=== PATIENT | male | born 1955 | race Two or more races ===

== ENCOUNTER 2021-04-20 01:37 | Inpatient (IN) | payer MEDICARE, BC ==
[2021-04-20] MEDS ORDERED: MORPHINE SULFATE 4 MG/ML SYRINGE IV STA (02:12)
[2021-04-20] MEDS ORDERED: ONDANSETRON 4 MG/2 ML VIAL IVP STA (02:12)
--- NOTE | 2021-04-20 02:19 | ED ---
Weakness HPI - General Chief complaint: Shortness of Breath Stated complaint: Difficulty Breathing Time Seen by Provider: 04/20/21 02:12 Source: patient, EMS, RN notes reviewed, old records reviewed Mode of arrival: EMS Limitations: no limitations - History of Present Illness Initial comments: This is a 65-year-old male to the ER for evaluation. Patient resents today for evaluation regards to weakness not feeling well shortness of breath with exertio n no activity level at home significant swelling of his legs and scrotum. Multiple complaints. Recent history of severe anemia with colonoscopy. Patient states she still feels weak and dizzy. Patient has no travel has no travel history no fevers no sick contacts that he knows. He does have recent history of GI bleed with anemia MD Complaint: generalized weakness, lack of energy, difficulty walking (Patient is currently unable to walk) -: days(s) Location: generalized Severity: severe Severity scale (1-10): 10 Quality: constant Consistency: constant Improves with: none Worsens with: none Context: history of similar Associated Symptoms: dark stools, loss of appetite, nausea/vomiting, shortness of breath - Related Data Home Medications Medication Instructions Recorded Confirmed Dicyclomine [Bentyl] 20 mg PO QID PRN 04/10/21 04/10/21 Diltiazem HCl [Cartia Xt] 180 mg PO TID 04/10/21 04/10/21 Furosemide [Lasix] 40 mg PO DAILY 04/10/21 04/10/21 Methyl Folate 1000mcg 1 tab PO MOTHFR 04/10/21 04/10/21 Metoprolol Tartrate [Lopressor] 100 mg PO TID 04/10/21 04/10/21 Oxybutynin Chloride [Ditropan XL] 10 mg PO BID 04/10/21 04/10/21 Pantoprazole [Protonix] 40 mg PO DAILY 04/10/21 04/10/21 Simvastatin [Zocor] 40 mg PO HS 04/10/21 04/10/21 Tamsulosin HCl [Flomax] 0.4 mg PO DAILY 04/10/21 04/10/21 cloNIDine HCL [Catapres] 0.2 mg PO BID 04/10/21 04/10/21 Previous Rx's Medication Instructions Recorded Acetaminophen Tab [Tylenol] 650 mg PO Q6HR PRN tab 04/15/21 Aspirin 81 mg PO DAILY #3 tab 04/15/21 Ferrous Sulfate [Feosol] 325 mg PO DAILY 3 Days tab 04/15/21 lisinopriL [Zestril] 10 mg PO DAILY tab 04/15/21 traZODone HCL 100 mg PO HS #3 tablet 04/15/21 Allergies Allergy/AdvReac Type Severity Reaction Status Date / Time No Known Allergies Allergy Verified 04/10/21 17:33 Review of Systems ROS Statement: Those systems with pertinent positive or pertinent negative responses have been documented in the HPI. ROS Other: All systems not noted in ROS Statement are negative. Past Medical History Past Medical History: Atrial Fibrillation, Blood Disorder, Coronary Artery Disease (CAD), Cancer, Heart Failure, Deep Vein Thrombosis (DVT), Hyperlipidemia, Hypertension, Pulmonary Embolus (PE) Additional Past Medical History / Comment(s): clotting disorder MTHFR. History of Any Multi-Drug Resistant Organisms: None Reported Past Surgical History: Back Surgery Additional Past Surgical History / Comment(s): Stomach stapling Past Psychological History: No Psychological Hx Reported Smoking Status: Never smoker Past Alcohol Use History: None Reported Past Drug Use History: None Reported - Past Family History Father Family Medical History: Cancer Additional Family Medical History / Comment(s): Colorectal, Spinal, Pancreaitic, Liver cancer Mother Additional Family Medical History / Comment(s): Ovarian Cancer General Exam General appearance: alert, in no apparent distress, lethargic, in distress Head exam: Present: atraumatic, normocephalic, normal inspection Eye exam: Present: normal appearance, PERRL, EOMI. Absent: scleral icterus, conjunctival injection, periorbital swelling ENT exam: Present: normal exam, mucous membranes moist Neck exam: Present: normal inspection. Absent: tenderness, meningismus, lymp hadenopathy Respiratory exam: Present: normal lung sounds bilaterally. Absent: respiratory distress, wheezes, rales, rhonchi, stridor Cardiovascular Exam: Present: regular rate, normal rhythm, normal heart sounds. Absent: systolic murmur, diastolic murmur, rubs, gallop, clicks GI/Abdominal exam: Present: soft, normal bowel sounds. Absent: distended, tenderness, guarding, rebound, rigid Extremities exam: Present: normal inspection, full ROM, normal capillary refill. Absent: tenderness, pedal edema, joint swelling, calf tenderness Back exam: Present: normal inspection Neurological exam: Present: alert, oriented X3, CN II-XII intact Psychiatric exam: Present: normal affect, normal mood Skin exam: Present: warm, dry, intact, normal color. Absent: rash Course Vital Signs 04/20/21 01:43 Temperature 99.1 F Pulse Rate 76 Respiratory 18 Rate Blood Pressure 93/70 O2 Sat by Pulse 97 Oximetry - Reevaluation(s) Reevaluation #1: 04/20/21 04:26 Medical record is reviewed Reevaluation #2: 04/20/21 04:26 Patient has no improvement in symptoms Reevaluation #3: 04/20/21 04:26 Patient informed results and questions answered - Consultations Consultation #1: Spoke with [facility] who agrees to admit this patient EKG Findings - EKG Comments: EKG Findings:: EKG shows rate of 69 QRS 173 QTc 454 Medical Decision Making - Medical Decision Making 65 male DF for evaluation, no recent diagnoses of cancer severely malnourished a lot of nondependent edema. Patient will be admitted secondary to significantly low hemoglobin shortness of breath and weakness - Lab Data Result diagrams: 04/20/21 02:07 04/20/21 02:07 Lab Results 04/20/21 04/20/21 04/20/21 Range/Units 02:07 02:07 02:07 WBC 4.4 (3.8-10.6) k/uL RBC 3.32 L (4.30-5.90) m/uL Hgb 6.6 L* (13.0-17.5) gm/dL Hct 24.4 L (39.0-53.0) % MCV 73.6 L (80.0-100.0) fL MCH 20.0 L (25.0-35.0) pg MCHC 27.1 L (31.0-37.0) g/dL RDW 24.0 H (11.5-15.5) % Plt Count 283 (150-450) k/uL MPV 6.7 Neutrophils % (Manual) 61 % Band Neuts % (Manual) 1 % Lymphocytes % (Manual) 25 % Monocytes % (Manual) 8 % Eosinophils % (Manual) 4 % Basophils % (Manual) 1 % Neutrophils # (Manual) 2.70 (1.3-7.7) k/uL Lymphocytes # (Manual) 1.10 (1.0-4.8) k/uL Monocytes # (Manual) 0.35 (0-1.0) k/uL Eosinophils # (Manual) 0.18 (0-0.7) k/uL Basophils # (Manual) 0.04 (0-0.2) k/uL Nucleated RBCs 0 (0-0) /100 WBC Manual Slide Review Performed Polychromasia Present Hypochromasia Marked Poikilocytosis Moderate Anisocytosis Moderate Microcytosis Marked Ovalocytes Present Fragmented RBCs Present PT 12.8 H (9.0-12.0) sec INR 1.2 H (<1.2) APTT 27.0 (22.0-30.0) sec Sodium 139 (137-145) mmol/L Potassium 3.2 L (3.5-5.1) mmol/L Chloride 104 (98-107) mmol/L Carbon Dioxide 30 (22-30) mmol/L Anion Gap 5 mmol/L BUN 17 (9-20) mg/dL Creatinine 0.98 (0.66-1.25) mg/dL Est GFR (CKD-EPI)AfAm >90 (>60 ml/min/1.73 sqM) Est GFR (CKD-EPI)NonAf 81 (>60 ml/min/1.73 sqM) Glucose 97 (74-99) mg/dL Calcium 7.5 L (8.4-10.2) mg/dL Phosphorus 3.1 (2.5-4.5) mg/dL Magnesium 2.2 (1.6-2.3) mg/dL Total Bilirubin 0.5 (0.2-1.3) mg/dL AST 23 (17-59) U/L ALT 11 (4-49) U/L Alkaline Phosphatase 79 (38-126) U/L Troponin I (0.000-0.034) ng/mL NT-Pro-B Natriuret Pep pg/mL Total Protein 5.9 L (6.3-8.2) g/dL Albumin 2.7 L (3.5-5.0) g/dL Blood Type Blood Type Recheck Bld Type Recheck Status Antibody Screen Spec Expiration Date 04/20/21 04/20/21 04/20/21 Range/Units 02:07 02:07 02:07 WBC (3.8-10.6) k/uL RBC (4.30-5.90) m/uL Hgb (13.0-17.5) gm/dL Hct (39.0-53.0) % MCV (80.0-100.0) fL MCH (25.0-35.0) pg MCHC (31.0-37.0) g/dL RDW (11.5-15.5) % Plt Count (150-450) k/uL MPV Neutrophils % (Manual) % Band Neuts % (Manual) % Lymphocytes % (Manual) % Monocytes % (Manual) % Eosinophils % (Manual) % Basophils % (Manual) % Neutrophils # (Manual) (1.3-7.7) k/uL Lymphocytes # (Manual) (1.0-4.8) k/uL Monocytes # (Manual) (0-1.0) k/uL Eosinophils # (Manual) (0-0.7) k/uL Basophils # (Manual) (0-0.2) k/uL Nucleated RBCs (0-0) /100 WBC Manual Slide Review Polychromasia Hypochromasia Poikilocytosis Anisocytosis Microcytosis Ovalocytes Fragmented RBCs PT (9.0-12.0) sec INR (<1.2) APTT (22.0-30.0) sec Sodium (137-145) mmol/L Potassium (3.5-5.1) mmol/L Chloride (98-107) mmol/L Carbon Dioxide (22-30) mmol/L Anion Gap mmol/L BUN (9-20) mg/dL Creatinine (0.66-1.25) mg/dL Est GFR (CKD-EPI)AfAm (>60 ml/min/1.73 sqM) Est GFR (CKD-EPI)NonAf (>60 ml/min/1.73 sqM) Glucose (74-99) mg/dL Calcium (8.4-10.2) mg/dL Phosphorus (2.5-4.5) mg/dL Magnesium (1.6-2.3) mg/dL Total Bilirubin (0.2-1.3) mg/dL AST (17-59) U/L ALT (4-49) U/L Alkaline Phosphatase (38-126) U/L Troponin I <0.012 (0.000-0.034) ng/mL NT-Pro-B Natriuret Pep 3590 pg/mL Total Protein (6.3-8.2) g/dL Albumin (3.5-5.0) g/dL Blood Type A Negative Blood Type Recheck A Neg Bld Type Recheck Status No Antibody Screen NEGATIVE Spec Expiration Date 04/23/2021 - 2306 - Radiology Data Radiology results: report reviewed (Chest x-rays negative for acute disease), image reviewed Critical Care Time Critical Care Time: Yes Total Critical Care Time: 31 Disposition Clinical Impression: Confusion, MTHFR gene mutation, Gastric mass, Microcytic anemia, Symptomatic anemia, Weakness, Scrotal edema Disposition: ADMITTED IP TO THIS [facility] Condition: Fair Is patient prescribed a controlled substance at d/c from ED?: No Referrals: Nonstaff,Physician [REFERRING] - 1-2 days
[2021-04-20 02:33] LABS: ALT 11 U/L (4-49); AST 23 U/L (17-59); African American GFR (CKD) >90 (>60 ml/min/1.73 sqM); Albumin 2.7 g/dL (3.5-5.0); Alkaline Phosphatase 79 U/L (38-126); Anion Gap 5 mmol/L; Blood Urea Nitrogen 17 mg/dL (9-20); Calcium 7.5 mg/dL (8.4-10.2); Carbon Dioxide 30 mmol/L (22-30); Chloride 104 mmol/L (98-107); Glucose 97 mg/dL (74-99); Magnesium 2.2 mg/dL (1.6-2.3); Non-African American GFR(CKD) 81 (>60 ml/min/1.73 sqM); Phosphorus 3.1 mg/dL (2.5-4.5); Potassium 3.2 mmol/L (3.5-5.1); Sodium 139 mmol/L (137-145); Total Bilirubin 0.5 mg/dL (0.2-1.3); Total Protein 5.9 g/dL (6.3-8.2)
[2021-04-20 02:35] LABS: INR 1.2 (<1.2); Prothrombin Time 12.8 sec (9.0-12.0)
[2021-04-20 03:02] LABS: Anisocytosis Moderate; HCT 24.4 % (39.0-53.0); Hypochromasia Marked; MCHC 27.1 g/dL (31.0-37.0); MCV 73.6 fL (80.0-100.0); Mean Platelet Volume 6.7; Microcytosis Marked; Platelet Count 283 k/uL (150-450); Poikilocytosis Moderate; RBC 3.32 m/uL (4.30-5.90); WBC 4.4 k/uL (3.8-10.6)
[2021-04-20 03:07] LABS: HGB 6.6 gm/dL (13.0-17.5)
--- NOTE | 2021-04-20 03:21 | XR ---
EXAMINATION TYPE: XR chest 1V portable DATE OF EXAM: 04/20/2021 COMPARISON: 04/11/2021 HISTORY: Short of breath TECHNIQUE: FINDINGS: There is some elevation of the right diaphragm. There is some mild atelectasis right lung b ase. No heart failure seen. Heart appears enlarged. There are chest leads. Bony thorax is intact IMPRESSION: There is some mild atelectasis right lung base. No change compared to the old exam. No he art failure.
[2021-04-20 03:37] LABS: Band Neutrophils % 1 %; Basophils # (M) 0.04 k/uL (0-0.2); Eosinophils # (M) 0.18 k/uL (0-0.7); Monocytes # (M) 0.35 k/uL (0-1.0); Neutrophils % (M) 61 %; Nucleated Red Blood Cells 0 /100 WBC (0-0); Total Cells Counted 100
[2021-04-20 03:42] LABS: Ovalocytes Present; Polychromasia Present
[2021-04-20 03:43] LABS: RBC Fragments Present
[2021-04-20] MEDS ORDERED: MORPHINE SULFATE 4 MG/ML SYRINGE IV PRN (04:23)
[2021-04-20] MEDS ORDERED: LORazepam 2 MG/ML INJ IV PRN (04:23)
[2021-04-20] MEDS ORDERED: ONDANSETRON 4 MG/2 ML VIAL IVP PRN (04:23)
[2021-04-20] MEDS ORDERED: NALOXONE 0.4 MG/ML 1 ML VIAL IV PRN (04:23)
[2021-04-20] MEDS ORDERED: SODIUM CHLORIDE 0.9% 1,000 ML IV SCH (04:30)
[2021-04-20] MEDS ORDERED: POTASSIUM BICARBONATE/CIT AC 20 MEQ TABLET.EFF PO ONE (04:32)
[2021-04-20] MEDS ORDERED: POTASSIUM CHLORIDE ER 20 MEQ TAB.ER PO STA (04:32)
[2021-04-20 05:24] LABS: Appearance,Urine Clear (Clear); Bilirubin,Urine Negative (Negative); Blood,Urine Negative (Negative); Color,Urine Yellow; Glucose,Urine (UA) Negative (Negative); Ketones,Urine Negative (Negative); Leukocyte Esterase,Urine Negative (Negative); Nitrite,Urine Negative (Negative); PH, Urine 5.5 (5.0-8.0); Protein,Urine Trace (Negative); Specific Gravity,Urine 1.034 (1.001-1.035)
[2021-04-20] MEDS ORDERED: DICYCLOMINE 20 MG TAB PO PRN (09:53)
[2021-04-20] MEDS ORDERED: ACETAMINOPHEN TAB 325 MG TAB PO PRN (09:53)
--- NOTE | 2021-04-20 11:29 | P.HPIM ---
History of Present Illness Patient is a 65-year-old male was recently discharged from the hospital after he was treated for a GI bleed and the patient is found to have a mass in the stomach and lower esophageal area. Biopsies were obtained those biopsies of now positive for moderately differentiated adenocarcinoma. Patient was discharged to subacute rehabilitation but he sound signed out AMA from the subacute rehab went home last night he felt short of breath because of which she came back to the hospital. Although all the workup is negative and patient is saturating at 98% on room air. Patient probably has sleep apnea will need a sleep study as an outpatient. Patient is also found to have a hemoglobin of 6.6 and 1 unit of PRBC considering his shortness of breath although this was automatically discontinued as he didn't qualify for blood transfusion with a 6.6 hemoglobin. Patient was also complaining of generalized weakness lack of energy. REVIEW OF SYSTEMS: CONSTITUTIONAL: No fever, no malaise, no fatigue. HEENT: No recent visual problems or hearing problems. Denied any sore throat. CARDIOVASCULAR: No chest pain, orthopnea, PND, no palpitations, no syncope. PULMONARY: no cough, no hemoptysis. GASTROINTESTINAL: No diarrhea, no nausea, no vomiting, no abdominal pain. NEUROLOGICAL: No headaches, no weakness, no numbness. HEMATOLOGICAL: Denies any bleeding or petechiae. GENITOURINARY: Denies any burning micturition, frequency, or urgency. MUSCULOSKELETAL/RHEUMATOLOGICAL: Denies any joint pain, swelling, or any muscle pain. ENDOCRINE: Denies any polyuria or polydipsia. The rest of the 14-point review of systems is negative. PHYSICAL EXAMINATION: GENERAL: The patient is alert and oriented x3, not in any acute distress obese HEENT: Pupils are round and equally reacting to light. EOMI. No scleral icterus. Does have conjunctival pallor. Normocephalic, atraumatic. No pharyngeal erythema. No thyromegaly. CARDIOVASCULAR: S1 and S2 present. No murmurs, rubs, or gallops. PULMONARY: Chest is clear to auscultation, no wheezing or crackles. ABDOMEN: Soft, nontender, nondistended, normoactive bowel sounds. No palpable organomegaly. MUSCULOSKELETAL: No joint swelling or deformity. EXTREMITIES: No cyanosis, clubbing, or pedal edema. NEUROLOGICAL: Gross neurological examination did not reveal any focal deficits. SKIN: No rashes. Assessment and plan -Symptoms of shortness of breath and fatigue: Most probably related to his sleep apnea patient will need a sleep study as an outpatient. Anemia may have contributed to some of his symptoms although patient's hemoglobin is 6.6 because of which we're not transfusing him. Esophageal and gastric adenocarcinoma: Oncology will evaluate the patient -Iron deficiency anemia from his recent GI bleed -Obesity with sleep apnea and doesn't use CPAP machine at home -History of DVT in the past patient will be started on subcutaneous heparin used to be on Coumadin in the past because of his recent GI bleed Coumadin was held. Plan at the time was to hold off Coumadin until a followed by GI as an outpatient -Bilateral lower extremity edema and scrotal edema secondary to venous insufficiency patient's IV fluids were discontinued and patient was started on IV Lasix -Chronic atrial fibrillation presently rate controlled anti-correlation is on hold because of his recent GI bleed -Chronic back pain -Medical debility PT and OT consultation patient cannot live by himself and patient signed of her AGAINST MEDICAL ADVICE from subacute rehab, may at least need assisted living manager social services will be consulted -Hypokalemia potassium will be replaced DVT prophylaxis: Subcu heparin Past Medical History Past Medical History: Atrial Fibrillation, Blood Disorder, Coronary Artery Disease (CAD), Heart Failure, Deep Vein Thrombosis (DVT), Hyperlipidemia, Hypertension, Pulmonary Embolus (PE) Additional Past Medical History / Comment(s): clotting disorder MTHFR. History of Any Multi-Drug Resistant Organisms: None Reported Past Surgical History: Back Surgery Additional Past Surgical History / Comment(s): Stomach stapling Past Anesthesia/Blood Transfusion Reactions: No Reported Reaction Past Psychological History: No Psychological Hx Reported Smoking Status: Never smoker Past Alcohol Use History: None Reported Past Drug Use History: None Reported - Past Family History Father Family Medical History: Cancer Additional Family Medical History / Comment(s): Colorectal, Spinal, Pancreaitic, Liver cancer Mother Additional Family Medical History / Comment(s): Ovarian Cancer Medications and Allergies Home Medications Medication Instructions Recorded Confirmed Type Dicyclomine [Bentyl] 20 mg PO QID PRN 04/10/21 04/20/21 History Diltiazem HCl [Cartia Xt] 180 mg PO TID 04/10/21 04/20/21 History Furosemide [Lasix] 40 mg PO DAILY 04/10/21 04/20/21 History Methyl Folate 1000mcg 1 tab PO MOTHFR 04/10/21 04/10/21 History Metoprolol Tartrate [Lopressor] 100 mg PO TID 04/10/21 04/20/21 History Oxybutynin Chloride [Ditropan XL] 10 mg PO BID 04/10/21 04/20/21 History Pantoprazole [Protonix] 40 mg PO DAILY 04/10/21 04/20/21 History Simvastatin [Zocor] 40 mg PO HS 04/10/21 04/20/21 History Tamsulosin HCl [Flomax] 0.4 mg PO DAILY 04/10/21 04/20/21 History cloNIDine HCL [Catapres] 0.2 mg PO BID 04/10/21 04/20/21 History Acetaminophen Tab [Tylenol] 650 mg PO Q6HR PRN tab 04/15/21 04/20/21 Rx Aspirin 81 mg PO DAILY #3 tab 04/15/21 04/20/21 Rx Ferrous Sulfate [Feosol] 325 mg PO DAILY 3 Days tab 04/15/21 Rx traZODone HCL 100 mg PO HS #3 tablet 04/15/21 Rx lisinopriL [Zestril] 10 mg PO BID 04/20/21 04/20/21 History Allergies Allergy/AdvReac Type Severity Reaction Status Date / Time No Known Allergies Allergy Verified 04/10/21 17:33 Physical Exam Vitals: Vital Signs Temp Pulse Pulse Resp BP BP Pulse Ox 04/20/21 05:30 98.7 F 64 20 110/49 98 04/20/21 04:47 73 18 108/42 92 L 04/20/21 01:43 99.1 F 76 18 93/70 97 Intake and Output 04/19/21 04/20/21 04/20/21 22:59 06:59 14:59 Intake Total 100 Balance 100 Intake: Oral 100 Other: Voiding Method Indwelling Catheter Indwelling Catheter Weight 170.097 kg Results CBC & Chem 7: 04/20/21 02:07 04/20/21 02:07 Labs: Abnormal Lab Results - Last 24 Hours (Table) 04/20/21 04/20/21 04/20/21 Range/Units 02:07 02:07 02:07 RBC 3.32 L (4.30-5.90) m/uL Hgb 6.6 L* (13.0-17.5) gm/dL Hct 24.4 L (39.0-53.0) % MCV 73.6 L (80.0-100.0) fL MCH 20.0 L (25.0-35.0) pg MCHC 27.1 L (31.0-37.0) g/dL RDW 24.0 H (11.5-15.5) % PT 12.8 H (9.0-12.0) sec INR 1.2 H (<1.2) Potassium 3.2 L (3.5-5.1) mmol/L Calcium 7.5 L (8.4-10.2) mg/dL Total Protein 5.9 L (6.3-8.2) g/dL Albumin 2.7 L (3.5-5.0) g/dL Urine Protein (Negative) Crossmatch 04/20/21 04/20/21 Range/Units 02:07 05:07 RBC (4.30-5.90) m/uL Hgb (13.0-17.5) gm/dL Hct (39.0-53.0) % MCV (80.0-100.0) fL MCH (25.0-35.0) pg MCHC (31.0-37.0) g/dL RDW (11.5-15.5) % PT (9.0-12.0) sec INR (<1.2) Potassium (3.5-5.1) mmol/L Calcium (8.4-10.2) mg/dL Total Protein (6.3-8.2) g/dL Albumin (3.5-5.0) g/dL Urine Protein Trace H (Negative) Crossmatch See Detail Thrombosis Risk Factor Assmnt - Choose All That Apply Each Factor Represents 1 point: Obesity (BMI >25) Each Risk Factor Represents 2 Points: Age 61-74 years Each Risk Factor Represents 3 Points: History of DVT/PE Other congenital or acquired thrombophilia - If yes, enter type in comment: No Thrombosis Risk Factor Assessment Total Risk Factor Score: 6 Thrombosis Risk Factor Assessment Level: High Risk
--- NOTE | 2021-04-20 12:34 | P.CONS ---
History of Present Illness - Reason for Consult Consult date: 04/20/21 Anemia, gastric mass Requesting physician: Joana Sauer - Chief Complaint Weakness - History of Present Illness Mr. Becerra is a very pleasant 65-year-old gentleman who has multiple comorbidities including history of MTHFR, DVT and PE on automobile bumper straightener anticoagulation with Coumadin, heart failure, and recent admission on for weakness and melena, found to have a hemoglobin of 6.6, MCV 70s, normal WBC and platelets. He was found to be iron deficient. Received 3 units of PRBC and underwent EGD and colonoscopy. Found to have colonic polyps that were benign as well as a gastric mass extending up to the esophagus. 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 Presents back with weakness. Hemoglobin 6.9. Continues to have melena. Continues to be very weak. Discharged home and has not been getting physical therapy. He admits to weight loss. Also with significant edema. No smoking or alcohol use. Family history is significant of ovarian cancer in his mother that he says was diagnosed late as well as metastatic cancer involving the colon, pancreas, liver, and bones in his father who also from this. Brother is also dealing with some type of malignancy that has required feeding tube. Past Medical History Past Medical History: Atrial Fibrillation, Blood Disorder, Coronary Artery Disease (CAD), Heart Failure, Deep Vein Thrombosis (DVT), Hyperlipidemia, Hypertension, Pulmonary Embolus (PE) Additional Past Medical History / Comment(s): clotting disorder MTHFR. History of Any Multi-Drug Resistant Organisms: None Reported Past Surgical History: Back Surgery Additional Past Surgical History / Comment(s): Stomach stapling Past Anesthesia/Blood Transfusion Reactions: No Reported Reaction Past Psychological History: No Psychological Hx Reported Smoking Status: Never smoker Past Alcohol Use History: None Reported Past Drug Use History: None Reported - Past Family History Father Family Medical History: Cancer Additional Family Medical History / Comment(s): Colorectal, Spinal, Pancreaitic, Liver cancer Mother Additional Family Medical History / Comment(s): Ovarian Cancer Medications and Allergies Home Medications Medication Instructions Recorded Confirmed Type Dicyclomine [Bentyl] 20 mg PO QID PRN 04/10/21 04/20/21 History Diltiazem HCl [Cartia Xt] 180 mg PO TID 04/10/21 04/20/21 History Furosemide [Lasix] 40 mg PO DAILY 04/10/21 04/20/21 History Methyl Folate 1000mcg 1 tab PO MOTHFR 04/10/21 04/10/21 History Metoprolol Tartrate [Lopressor] 100 mg PO TID 04/10/21 04/20/21 History Oxybutynin Chloride [Ditropan XL] 10 mg PO BID 04/10/21 04/20/21 History Pantoprazole [Protonix] 40 mg PO DAILY 04/10/21 04/20/21 History Simvastatin [Zocor] 40 mg PO HS 04/10/21 04/20/21 History Tamsulosin HCl [Flomax] 0.4 mg PO DAILY 04/10/21 04/20/21 History cloNIDine HCL [Catapres] 0.2 mg PO BID 04/10/21 04/20/21 History Acetaminophen Tab [Tylenol] 650 mg PO Q6HR PRN tab 04/15/21 04/20/21 Rx Aspirin 81 mg PO DAILY #3 tab 04/15/21 04/20/21 Rx Ferrous Sulfate [Feosol] 325 mg PO DAILY 3 Days tab 04/15/21 Rx traZODone HCL 100 mg PO HS #3 tablet 04/15/21 Rx lisinopriL [Zestril] 10 mg PO BID 04/20/21 04/20/21 History Allergies Allergy/AdvReac Type Severity Reaction Status Date / Time No Known Allergies Allergy Verified 04/10/21 17:33 Physical Exam Vitals: Vital Signs Temp Pulse Pulse Resp BP BP Pulse Ox 04/20/21 05:30 98.7 F 64 20 110/49 98 04/20/21 04:47 73 18 108/42 92 L 04/20/21 01:43 99.1 F 76 18 93/70 97 Intake and Output 04/19/21 04/20/21 04/20/21 22:59 06:59 14:59 Intake Total 100 Balance 100 Intake: Oral 100 Other: Voiding Method Indwelling Catheter Indwelling Catheter Weight 170.097 kg Gen.: No acute distress. HEENT: Mucosa moist. No conjunctival pallor or scleral icterus. Neck: Neck supple. Lungs: No respiratory distress. Heart: Normal rate. Abdomen: Soft. Neuro: Alert and oriented 3. Skin: No jaundice. Psych: Appropriate affect. Results CBC & Chem 7: 04/20/21 02:07 04/20/21 02:07 Labs: Abnormal Lab Results - Last 24 Hours (Table) 04/20/21 04/20/21 04/20/21 Range/Units 02:07 02:07 02:07 RBC 3.32 L (4.30-5.90) m/uL Hgb 6.6 L* (13.0-17.5) gm/dL Hct 24.4 L (39.0-53.0) % MCV 73.6 L (80.0-100.0) fL MCH 20.0 L (25.0-35.0) pg MCHC 27.1 L (31.0-37.0) g/dL RDW 24.0 H (11.5-15.5) % PT 12.8 H (9.0-12.0) sec INR 1.2 H (<1.2) Potassium 3.2 L (3.5-5.1) mmol/L Calcium 7.5 L (8.4-10.2) mg/dL Total Protein 5.9 L (6.3-8.2) g/dL Albumin 2.7 L (3.5-5.0) g/dL Urine Protein (Negative) Crossmatch 04/20/21 04/20/21 Range/Units 02:07 05:07 RBC (4.30-5.90) m/uL Hgb (13.0-17.5) gm/dL Hct (39.0-53.0) % MCV (80.0-100.0) fL MCH (25.0-35.0) pg MCHC (31.0-37.0) g/dL RDW (11.5-15.5) % PT (9.0-12.0) sec INR (<1.2) Potassium (3.5-5.1) mmol/L Calcium (8.4-10.2) mg/dL Total Protein (6.3-8.2) g/dL Albumin (3.5-5.0) g/dL Urine Protein Trace H (Negative) Crossmatch See Detail CT scan - abdomen: report reviewed CT scan - chest: report reviewed CT scan - pelvis: report reviewed MRI - head: report reviewed Assessment and Plan Assessment: 1. Newly found gastric cancer 2. Microcytic anemia due to blood loss 3. Iron deficiency 4. GI bleed 5. Fluid overload 6. Weight loss Plan: Mr. Becerra is a very pleasant 65-year-old gentleman who is here for weakness due to iron deficiency microcytic anemia, likely from newly found gastric adenocarcinoma. He was recently hospitalized at the end of March for melena, hemoglobin 6's, MCV 70, found to have a ferritin of 14, normal B12 and folate. EGD and colonoscopy revealed a gastric mass as well as benign colon polyps. Pathology of the gastric mass positive for adenocarcinoma, HER-2 2+ IHC, fish pending. Patient has not followed up yet in the clinic to discuss these results as he ended up in the hospital prior to his appointment as scheduled on 04/23/21. I did have a discussion with the patient and his daughter at bedside about his pathology results. He did have staging CT CAP and MRI of the brain during his last hospitalization which was unremarkable other than thickening in the gastric wall due to the gastric mass. He continues to be significantly anemic. He will need blood transfusion to maintain hemoglobin above 7 as well as further IV iron supplementation. He received 3 doses of Ferrlicet during his last h ospitalization. Would benefit from an additional 3 doses at this point. Otherwise at this point this seems to be an early stage gastric cancer. He would benefit from outpatient PET scan. He will also need to work on his performance status. He is willing to go to subacute rehab if this is indicated. He would benefit from PT OT evaluation. He will also benefit from seeing radiation oncology team. Otherwise continue to monitor his hemoglobin. He does have significant fluid overload and history of heart failure. Defer to primary team for treatment of this. If he has not had a 2-D echo recently he might benefit from repeating this to reassess his cardiac status especially in light of possibly needing chemotherapy and anti-HER-2 medication if his HER-2 was positive on fish. Discussed with patient and daughter in detail and they're agreeable to the plan. All of their questions were answered.
[2021-04-20] MEDS: FUROSEMIDE 10 MG/ML 4 ML VIAL IV SCH ×2 (13:00→20:57)
[2021-04-20] MEDS: SODIUM FERRIC GLUCONAT-SUCROSE 125 MG in SODIUM CHLORIDE 0.9% 100 ML IVPB SCH (14:33)
[2021-04-20] MEDS: METOPROLOL TARTRATE 50 MG TAB PO SCH ×2 (18:09→20:57)
[2021-04-20] MEDS: DILTIAZEM CD 180 MG CAP.ER.24H PO SCH ×2 (18:09→20:57)
[2021-04-20] MEDS: HEPARIN SODIUM,PORCINE/PF 5,000 UNIT/0.5 ML SYRINGE SQ SCH (20:57)
[2021-04-20] MEDS: OXYBUTYNIN 10 MG TAB.ER.24 PO SCH (20:57)
[2021-04-20] MEDS: traZODone HCL 100 MG TAB PO SCH (20:57)
[2021-04-20] MEDS: ATORVASTATIN 20 MG TAB PO SCH (20:57)
[2021-04-20] MEDS ORDERED: cloNIDine HCL 0.1 MG TAB PO SCH (21:00)
[2021-04-20] MEDS ORDERED: cloNIDine HCL 0.2 MG TAB PO SCH (21:00)
[2021-04-20] MEDS ORDERED: lisinopriL 10 MG TAB PO SCH (21:00)
[2021-04-21] MEDS ORDERED: ASPIRIN 81 MG PO SCH (09:00)
[2021-04-21] MEDS ORDERED: FUROSEMIDE 40 MG TAB PO SCH (09:00)
[2021-04-21 09:10] LABS: African American GFR (CKD) 102.8 (60.0-200.0); Anion Gap 8.9 mmol/L (10.00-18.00); BUN/Creat Ratio 15.22 Ratio (12.00-20.00); Blood Urea Nitrogen 13.7 mg/dL (9.0-27.0); Calcium 7.9 mg/dL (8.7-10.3); Carbon Dioxide 28.1 mmol/L (20.0-27.5); Magnesium 2.2 mg/dL (1.5-2.4); Non-African American GFR(CKD) 88.7 (60.0-200.0); Phosphorus 2.8 mg/dL (2.4-5.1); Potassium 4.1 mmol/L (3.5-5.5); Total Bilirubin 0.2 mg/dL (0.30-1.20)
[2021-04-21 09:41] LABS: HGB 6.3 g/dL (13.0-17.0); MCH 18.8 pg (27.0-32.0); MCHC 25.2 g/dL (32.0-37.0); MCV 74.4 fL (80.0-97.0); Mean Platelet Volume 9.6 fL (9.5-12.2); NRBC Per 100 WBC 0 /100 WBCS (0.0-0.0); Platelet Count 299 X 10*3/uL (140-440); RBC 3.36 X 10*6/uL (4.40-5.60); RDW 28.7 % (11.5-14.5); WBC 6.03 X 10*3/uL (4.50-10.00)
[2021-04-21] MEDS ORDERED: METHYL FOLATE 1000 MCG PO SCH (09:53)
[2021-04-21] MEDS: FUROSEMIDE 10 MG/ML 4 ML VIAL IV SCH ×2 (10:04→20:13)
[2021-04-21] MEDS: HEPARIN SODIUM,PORCINE/PF 5,000 UNIT/0.5 ML SYRINGE SQ SCH (10:04)
[2021-04-21] MEDS: TAMSULOSIN 0.4 MG CAP.ER.24H PO SCH (10:06)
[2021-04-21] MEDS: METOPROLOL TARTRATE 50 MG TAB PO SCH ×3 (10:06→20:24)
[2021-04-21] MEDS: FERROUS SULFATE 325 MG TAB PO SCH (10:06)
[2021-04-21] MEDS: PANTOPRAZOLE 40 MG TABLET PO SCH (10:06)
[2021-04-21] MEDS: OXYBUTYNIN 10 MG TAB.ER.24 PO SCH ×2 (10:07→20:13)
[2021-04-21] MEDS: DILTIAZEM CD 180 MG CAP.ER.24H PO SCH ×3 (10:07→20:13)
--- NOTE | 2021-04-21 10:13 | P.PN ---
Subjective Progress Note Date: 04/21/21 Patient is a 65-year-old male was recently discharged from the hospital after he was treated for a GI bleed and the patient is found to have a mass in the stomach and lower esophageal area. Biopsies were obtained those biopsies of now positive for moderately differentiated adenocarcinoma. Patient was discharged to subacute rehabilitation but he sound signed out AMA from the subacute rehab went home last night he felt short of breath because of which she came back to the hospital. Although all the workup is negative and patient is saturating at 98% on room air. Patient probably has sleep apnea will need a sleep study as an outpatient. Patient is also found to have a hemoglobin of 6.6 and 1 unit of PRBC considering his shortness of breath although this was automatically discontinued as he didn't qualify for blood transfusion with a 6.6 hemoglobin. Patient was also complaining of generalized weakness lack of energy. 04/21/2021 Patient evaluated today on the bedside commode after bowel movement, which is soft formed and brown no evidence for blood in the stool currently. Patient now requesting some form of rehab for discharge as he has been quite weak at home. Complains of some throat irritation. Labs today show hemoglobin 6.3, MCV 74.4, platelet count 299. Potassium normalized to 4.1, CO2 28, anion gap 8.9, calcium 7.9. Patient to receive 1 unit of blood today. Otherwise he is afebrile, heart rate 73 sinus rhythm, blood pressure 124/67 and he is 94% on room air. Lungs are clear today. Patient with significant scrotal edema continues on IV lasix and recommended elevation. Patient to receive 3 days of IV iron. Review of Systems Constitutional: Reports fatigue denied any fever. Cardio vascular: denied any chest pain, palpitations Gastrointestinal: denied any nausea, vomiting, diarrhea Pulmonary: Denied any shortness of breath cough Neurologic denied any new focal deficits All inpatient medications were reviewed and appropriate changes in these medications as dictated in the interval history and assessment and plan. PHYSICAL EXAMINATION: GENERAL: The patient is alert and oriented x3, not in any acute distress obese HEENT: Pupils are round and equally reacting to light. EOMI. No scleral icterus. Does have conjunctival pallor. Normocephalic, atraumatic. No pharyngeal erythema. No thyromegaly. CARDIOVASCULAR: S1 and S2 present. No murmurs, rubs, or gallops. PULMONARY: Chest is clear to auscultation, no wheezing or crackles. ABDOMEN: Soft, nontender, nondistended, normoactive bowel sounds. No palpable organomegaly. MUSCULOSKELETAL: No joint swelling or deformity. EXTREMITIES: No cyanosis, clubbing, or pedal edema. NEUROLOGICAL: Gross neurological examination did not reveal any focal deficits. SKIN: No rashes. : Significant scrotal edema no breakdown noted Assessment and plan -Symptoms of shortness of breath and fatigue: Possibly will sleep apnea, will need outpatient evaluation, component of anemia hgb 6.3 today will receive 1 unit of blood -Anemia most likely from slow GI bleed related to gastric carcinoma, hgb today 6.3, will receive 1 unit of PRBC today and follow up with CBC tomorrow. Transfuse for hgb <6.5. -Esophageal and gastric adenocarcinoma: Oncology will evaluate the patient -Iron deficiency anemia from his recent GI bleed, ordered for 3 days of IV iron -Obesity with sleep apnea and doesn't use CPAP machine at home, outpatient evaluation recommended -History of DVT in the past patient will be started on subcutaneous heparin used to be on Coumadin in the past because of his recent GI bleed Coumadin was held. Plan at the time was to hold off Coumadin until follow up by GI as an outpatient -Bilateral lower extremity edema and scrotal edema secondary to venous insufficiency patient's IV fluids were discontinued, continues on IV Lasix -Chronic atrial fibrillation presently rate controlled anti-coagulation is on hold because of his recent GI bleed -Chronic back pain -Medical debility PT and OT consultation patient cannot live by himself and patient signed of her AGAINST MEDICAL ADVICE from subacute rehab, may at least need assisted living outreach and education social worker will be consulted -Hypokalemia, resolved after oral supplementation DVT prophylaxis: Subcu heparin Objective - Vital Signs Vital signs: Vital Signs Temp 98.4 F 04/21/21 05:00 Pulse 73 04/21/21 05:00 Resp 16 04/21/21 05:00 BP 124/67 04/21/21 05:00 Pulse Ox 94 L 04/21/21 05:00 Intake & Output 04/20/21 04/21/21 04/21/21 18:59 06:59 18:59 Intake Total 100 570 Output Total 2600 Balance -2029 Intake: Intake, IV Titration 100 Amount Sodium Ferric Gluconat- 100 Sucrose 125 mg In Sodium Chloride 0.9% 100 ml @ 100 mls/hr IVPB DAILY [facility] Rx#:[id number] Oral 570 Output: Urine 2600 Other: Voiding Method Indwelling Catheter Indwelling Catheter - Labs CBC & Chem 7: 04/21/21 05:34 04/21/21 05:34 Labs: Abnormal Lab Results - Last 24 Hours (Table) 04/20/21 04/21/21 04/21/21 Range/Units 02:07 05:34 05:34 RBC 3.36 L (4.40-5.60) X 10*6/uL Hgb 6.3 L* (13.0-17.0) g/dL Hct 25.0 L (39.6-50.0) % MCV 74.4 L (80.0-97.0) fL MCH 18.8 L (27.0-32.0) pg MCHC 25.2 L (32.0-37.0) g/dL RDW 28.7 H (11.5-14.5) % Carbon Dioxide 28.1 H (20.0-27.5) mmol/L Anion Gap 8.90 L (10.00-18.00) mmol/L Calcium 7.9 L (8.7-10.3) mg/dL Total Bilirubin 0.20 L (0.30-1.20) mg/dL Total Protein 6.0 L (6.2-8.2) g/dL Albumin 3.0 L (3.8-4.9) g/dL Albumin/Globulin Ratio 1.00 L (1.60-3.17) g/dL Crossmatch See Detail Assessment and Plan Time with Patient: Greater than 30
[2021-04-21 10:17] LABS: Basophils # (A) 0.04 X 10*3/uL (0.00-0.10); Basophils % (A) 0.7 %; Eosinophils # (A) 0.16 X 10*3/uL (0.04-0.35); Eosinophils % (A) 2.7 %; Hypochromasia (M) 2+; Immature Grans, Automated 0.2 %; Lymphocytes # (A) 1.17 X 10*3/uL (0.90-5.00); Lymphocytes % (A) 19.4 %; Monocytes # (A) 0.52 X 10*3/uL (0.20-1.00); Monocytes % (A) 8.6 %; Neutrophils # (A) 4.13 X 10*3/uL (1.80-7.70); Neutrophils % (A) 68.4 %; Schistocytes 1+
[2021-04-21] MEDS: SODIUM FERRIC GLUCONAT-SUCROSE 125 MG in SODIUM CHLORIDE 0.9% 100 ML IVPB SCH (10:20)
--- NOTE | 2021-04-21 11:46 | P.PN ---
Subjective Progress Note Date: 04/21/21 Principal diagnosis: GI bleed. Newly diagnosed In f/u today pt states qing BM this AM, denies hematemesis. He requires assistance with some ADLs at this time. Objective - Vital Signs Vital signs: Vital Signs Temp 98.4 F 04/21/21 05:00 Pulse 73 04/21/21 05:00 Resp 16 04/21/21 05:00 BP 124/67 04/21/21 05:00 Pulse Ox 94 L 04/21/21 05:00 Intake & Output 04/20/21 04/21/21 04/21/21 18:59 06:59 18:59 Intake Total 100 570 Output Total 2600 Balance 100 -2029 Intake: Intake, IV Titration 100 Amount Sodium Ferric Gluconat- 100 Sucrose 125 mg In Sodium Chloride 0.9% 100 ml @ 100 mls/hr IVPB DAILY [facility] Rx#:[id number] Oral 570 Output: Urine 2600 Other: Voiding Method Indwelling Catheter Indwelling Catheter Indwelling Catheter # Bowel Movements 1 - Constitutional General appearance: Present: cooperative, morbidly obese, no acute distress - EENT Eyes: Present: anicteric sclerae, EOMI ENT: Present: hearing grossly normal - Respiratory Respiratory: bilateral: CTA - Cardiovascular Rhythm: regular Heart sounds: normal: S1, S2 Abnormal Heart Sounds: Absent: systolic murmur, diastolic murmur, rub, S3 Gallop, S4 Gallop, click, other - Peripheral edema leg Peripheral Edema: bilateral: Trace - Gastrointestinal General gastrointestinal: Present: normal bowel sounds, soft. Absent: absent bowel sounds, decreased bowel sounds, distended, hepatomegaly, hyperactive bowel sounds, organomegaly, rigid, scaphoid, splenomegaly, tenderness, umbilical hernia, ventral hernia - Integumentary Integumentary Comment(s): BLE bronzing of the skin c/w vascular insufficiency Integumentary: Present: pale - Neurologic Neurologic: Present: CNII-XII intact - Musculoskeletal Musculoskeletal: Present: generalized weakness, strength equal bilaterally - Psychiatric Psychiatric: Present: A&O x's 3, appropriate affect, intact judgment & insight - Labs CBC & Chem 7: 04/21/21 05:34 04/21/21 05:34 Labs: Abnormal Lab Results - Last 24 Hours (Table) 03/06/22 03/07/22 03/07/22 Range/Units 02:07 05:34 05:34 RBC 3.36 L (4.40-5.60) X 10*6/uL Hgb 6.3 L* (13.0-17.0) g/dL Hct 25.0 L (39.6-50.0) % MCV 74.4 L (80.0-97.0) fL MCH 18.8 L (27.0-32.0) pg MCHC 25.2 L (32.0-37.0) g/dL RDW 28.7 H (11.5-14.5) % Carbon Dioxide 28.1 H (20.0-27.5) mmol/L Anion Gap 8.90 L (10.00-18.00) mmol/L Calcium 7.9 L (8.7-10.3) mg/dL Total Bilirubin 0.20 L (0.30-1.20) mg/dL Total Protein 6.0 L (6.2-8.2) g/dL Albumin 3.0 L (3.8-4.9) g/dL Albumin/Globulin Ratio 1.00 L (1.60-3.17) g/dL Crossmatch See Detail Assessment and Plan (1) GE junction carcinoma Narrative/Plan: Newly diagnosed. Pt needs PET outpt to confirm no mets. He needs to participate in rehab so that he can manage ADLs and get to and from appts. Encouraged pt that if he improved his PS he will tolerate treatment better. He verbalized understanding Current Visit: Yes Status: Acute Priority: High Code(s): C16.0 - MALIGNANT NEOPLASM OF CARDIA SNOMED Code(s): 36873962 (2) Symptomatic anemia Narrative/Plan: Contributing to weakness. Acute on chronic bleeding from tumor. Pt has had IV iron, on oral iron. He is getting 1 unit PRBCs for Hgb 6.3. Coumadin, asa held 2/2 bleeding. SCDs for DVT prophylaxis. Current Visit: Yes Status: Acute Priority: High Code(s): D64.9 - ANEMIA, UNSPECIFIED SNOMED Code(s): 798476143 (3) Weakness Narrative/Plan: 2/2 anemia. Discussed case with Attending SOFTWARE INTEGRATION DEVELOPER. Pt left AMA from rehab due to poor conditions. Plan is to try another rehab. Pt cannot have chemo until he is discharged from rehab. He also needs staging PET scan prior to starting chemo so that has to be planned outpt too. Current Visit: Yes Status: Acute Priority: High Code(s): R53.1 - WEAKNESS SNOMED Code(s): 55258615 (4) GI hemorrhage Narrative/Plan: Pt has intermittent melena per his reports. This is going to continue pending treatment of friable eso/gastric tumor. Case discussed with Rad Onc who will see pt and determine if a few doses of XRT will help to palliate tumor bleeding and help maintain Hgb at a level that hopefully will allow pt to rehab. Current Visit: Yes Status: Acute Priority: High Code(s): K92.2 - GASTROINTESTINAL HEMORRHAGE, UNSPECIFIED SNOMED Code(s): 81581214 (5) Melena Narrative/Plan: Most likely 2/2 eso/gastric mass. Pt denies any melena today Current Visit: Yes Status: Acute Priority: High Code(s): K92.1 - MELENA SNOMED Code(s): 5240176 Plan: attests: I have performed H&P, developed impression and plan of care. Discussed with dictator. Agree with dictation, documented as a scribe.
--- NOTE | 2021-04-21 15:06 | P.CONS ---
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 He presented with symptomatic anemia and a hemoglobin of 6. After undergoing discharge to subacute rehabilitation, the patient was readmitted to the hospital secondary to persistent weakness and continued bleeding. the patient reports that for the past several months he has noticed dark, tarry stools. He also has had some increasing discomfort with swallowing. It was not until recently that the patient developed difficulty with occasional regurgitation secondary to food obstruction. The patient presented to the ER on April 10 complaining of weakness and dark stools. The patient's hemoglobin was found to be 6.5. He had been on aspirin and Coumadin. He underwent an upper endoscopy on April 12 revealing a circumferential, ulcerated mass involving the cardia of the stomach extending to the distal esophagus. This band from 40 cm through the GE junction at 47 cm into the cardia. Biopsies of both the distal esophagus and cardia were consistent with moderately differentiated adenocarcinoma, HER-2 2+ (FISH Pending). The patient did undergo a CT scan of the chest, abdomen and pelvis on April 12. This revealed a small right-sided pleural effusion, with abnormal thickening in the stomach. There was no clear evidence of distant disease. The patient was previously discharge from his prior hospital stay to rehabilitation at [facility]. Unfortunately, after 2 days the patient checked himself out secondary to dissatisfaction with their accommodations. Shortly after going home, the patient was again admitted to the hospital secondary to weakness and chest pain. His hemoglobin was again found to be 6.5. At this time, the patient reports he has some difficulties still with dark, tarry stools. He does have midsternal discomfort worse when swallowing. This is particularly bothersome when he gets food stuck. He has had a couple episodes of cough which has produced bright red blood. He did not think this was secondary to vomiting. Of note, the patient has a history of chronic back pain and morbid obesity. At baseline, he uses a scooter to get around and does not ambulate. Review of Systems Constitutional: Denies chills, Denies fever Eyes: denies blurred vision Ears, nose, mouth and throat: Denies headache Cardiovascular: Reports chest pain Respiratory: Reports cough, Reports hemoptysis, Denies dyspnea Gastrointestinal: Denies BRBPR Genitourinary: Reports testicular lump (scrotal edema), Denies discharge, Denies dysuria Integumentary: Denies rash Neurological: Denies ataxia, Denies confusion, Denies double vision Psychiatric: Denies anxiety, Denies confusion Past Medical History Past Medical History: Atrial Fibrillation, Blood Disorder, Coronary Artery Disease (CAD), Heart Failure, Deep Vein Thrombosis (DVT), Hyperlipidemia, Hypertension, Pulmonary Embolus (PE) Additional Past Medical History / Comment(s): clotting disorder MTHFR. History of Any Multi-Drug Resistant Organisms: None Reported Past Surgical History: Back Surgery Additional Past Surgical History / Comment(s): Stomach stapling Past Anesthesia/Blood Transfusion Reactions: No Reported Reaction Past Psychological History: No Psychological Hx Reported Smoking Status: Never smoker Past Alcohol Use History: None Reported Past Drug Use History: None Reported - Past Family History Father Family Medical History: Cancer Additional Family Medical History / Comment(s): Colorectal, Spinal, Pancreaitic, Liver cancer Mother Additional Family Medical History / Comment(s): Ovarian Cancer Medications and Allergies Home Medications Medication Instructions Recorded Confirmed Type Dicyclomine [Bentyl] 20 mg PO QID PRN 04/10/21 04/20/21 History Diltiazem HCl [Cartia Xt] 180 mg PO TID 04/10/21 04/20/21 History Furosemide [Lasix] 40 mg PO DAILY 04/10/21 04/20/21 History Methyl Folate 1000mcg 1 tab PO MOTHFR 04/10/21 04/20/21 History Metoprolol Tartrate [Lopressor] 100 mg PO TID 04/10/21 04/20/21 History Oxybutynin Chloride [Ditropan XL] 10 mg PO BID 04/10/21 04/20/21 History Pantoprazole [Protonix] 40 mg PO DAILY 04/10/21 04/20/21 History Simvastatin [Zocor] 40 mg PO HS 04/10/21 04/20/21 History Tamsulosin HCl [Flomax] 0.4 mg PO DAILY 04/10/21 04/20/21 History cloNIDine HCL [Catapres] 0.2 mg PO BID 04/10/21 04/20/21 History Acetaminophen Tab [Tylenol] 650 mg PO Q6HR PRN tab 04/15/21 04/20/21 Rx Aspirin 81 mg PO DAILY #3 tab 04/15/21 04/20/21 Rx Warfarin [Coumadin] 7.5 mg PO TUTHSA@0500 04/20/21 04/20/21 History Warfarin [Coumadin] 11.25 mg PO SUMOWEFR@0500 04/20/21 04/20/21 History lisinopriL [Zestril] 10 mg PO BID 04/20/21 04/20/21 History Allergies Allergy/AdvReac Type Severity Reaction Status Date / Time No Known Allergies Allergy Verified 04/20/21 12:41 Physical Exam Vitals: Vital Signs Temp Pulse Pulse Pulse Resp BP BP 04/21/21 13:40 99.1 F 83 14 142/66 04/21/21 13:30 99.1 F 87 16 130/62 04/21/21 11:26 97.8 F 93 16 138/77 04/21/21 05:00 98.4 F 73 16 124/67 04/20/21 21:00 99.5 F 88 16 130/68 04/20/21 18:08 101 H 128/97 Pulse Ox 04/21/21 13:40 93 L 04/21/21 13:30 94 L 04/21/21 11:26 98 04/21/21 05:00 94 L 04/20/21 21:00 93 L 04/20/21 18:08 Intake and Output 04/20/21 04/21/21 04/21/21 22:59 06:59 14:59 Intake Total 100 570 0 Output Total 2600 3500 Balance 100 -2030 -3500 Intake: Intake, IV Titration 100 Amount Sodium Ferric Gluconat- 100 Sucrose 125 mg In Sodium Chloride 0.9% 100 ml @ 100 mls/hr IVPB DAILY [facility] Rx#:[id number] Oral 570 Blood Product 0 Rc Pheresis As-3 Unit 0 [id number] Output: Urine 2600 3500 Other: Voiding Method Indwelling Catheter Indwelling Catheter # Bowel Movements 1 - Constitutional General appearance: morbidly obese - EENT Eyes: EOMI, PERRLA ENT: hearing grossly normal - Neck Neck: no lymphadenopathy - Respiratory Respiratory: right: diminished, left: CTA - Cardiovascular Rhythm: regular - Gastrointestinal General gastrointestinal: soft, no tenderness - Integumentary Integumentary: no cellulitis, pale - Neurologic Neurologic: CNII-XII intact - Musculoskeletal Musculoskeletal: generalized weakness - Psychiatric Psychiatric: A&O x's 3, appropriate affect Results CBC & Chem 7: 04/21/21 05:34 04/21/21 05:34 Labs: Abnormal Lab Results - Last 24 Hours (Table) 04/20/21 04/21/21 04/21/21 Range/Units 02:07 05:34 05:34 RBC 3.36 L (4.40-5.60) X 10*6/uL Hgb 6.3 L* (13.0-17.0) g/dL Hct 25.0 L (39.6-50.0) % MCV 74.4 L (80.0-97.0) fL MCH 18.8 L (27.0-32.0) pg MCHC 25.2 L (32.0-37.0) g/dL RDW 28.7 H (11.5-14.5) % Carbon Dioxide 28.1 H (20.0-27.5) mmol/L Anion Gap 8.90 L (10.00-18.00) mmol/L Calcium 7.9 L (8.7-10.3) mg/dL Total Bilirubin 0.20 L (0.30-1.20) mg/dL Total Protein 6.0 L (6.2-8.2) g/dL Albumin 3.0 L (3.8-4.9) g/dL Albumin/Globulin Ratio 1.00 L (1.60-3.17) g/dL Crossmatch See Detail CT scan - abdomen: report reviewed, image reviewed CT scan - chest: report reviewed, image reviewed CT Scan - head: report reviewed CT scan - pelvis: report reviewed, image reviewed Assessment and Plan Assessment: The patient is a 65-year-old male with a history of a 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 He presented with symptomatic anemia and a hemoglobin of 6. After undergoing discharge to subacute rehabilitation, the patient was readmitted to the hospital secondary to persistent weakness and continued bleeding. Plan: 1. Anemia: This is secondary to the patient's newly diagnosed distal esophageal cancer. The patient's Coumadin has been held. Planning for 1 unit blood transfusion as well as iron transfusion. I discussed with the patient that we could initiate a course of radiotherapy directed to the esophagus in hopes to stop/slow the bleeding. This would hopefully allow the patient to go to rehabilitation and have meaningful improvement. I explained that doing a short initial course of radiation would not hinder our ability to later do a definitive course of therapy, if the patient is found to have no distant metastatic disease. I explained the patient would first undergo CT simulation for treatment planning. Treatment be delivered Wednesday through Wednesday, 5 days a week for approximately 3-4 fractions. I explained this initial short course would hopefully help control the bleeding. I explained that typical side effects of this treatment include, but is not limited to; fatigue, dysphagia, cough, nausea, odynophagia, esophagitis, and low risk of late toxicity considering palliative dosing. we will plan to bring the patient down for a CT simulation the morning of April 22 with hope to start his treatment later that afternoon. 2. Distal esophageal adenocarcinoma: As noted above, the patient has a fairly large tumor involving the distal esophagus and extending into the gastric cardia. A CT scan did not reveal any clear elsewhere disease, but I explained to the patient that a PET/CT would be important to definitively rule out distant metastatic disease. If the patient is not found to have elsewhere disease, he may be a candidate for a more definitive course of concurrent chemoradiation. However, the patient will first need to attend rehabilitation, and undergo the PET/CT before starting on such a course. I explained that try modality therapy with ultimate esophageal resection is often recommended, but that in his case he was very unlikely to be recommended this aggressive surgery considering his medical co-morbidities. 3. Chronic back pain: the patient reports a remote history of back injury, and resulting chronic pain. It appears the patient has a relatively compromised performance status even at baseline before his cancer diagnosis. Likely ECOG of 2-3 prior to diagnosis with an inability to ambulate mostly relying on motorized scooter/wheelchair. This is likely secondary not only to his chronic back pain but also likely due to his morbid obesity. Time with Patient: Greater than 30
[2021-04-21] MEDS: traZODone HCL 100 MG TAB PO SCH (20:13)
[2021-04-21] MEDS: ATORVASTATIN 20 MG TAB PO SCH (20:13)
[2021-04-22] MEDS: SODIUM FERRIC GLUCONAT-SUCROSE 125 MG in SODIUM CHLORIDE 0.9% 100 ML IVPB SCH (08:22)
[2021-04-22] MEDS: OXYBUTYNIN 10 MG TAB.ER.24 PO SCH ×2 (08:22→20:07)
[2021-04-22] MEDS: FUROSEMIDE 10 MG/ML 4 ML VIAL IV SCH ×2 (08:23→20:07)
[2021-04-22] MEDS: DILTIAZEM CD 180 MG CAP.ER.24H PO SCH ×3 (08:23→20:07)
[2021-04-22] MEDS: PANTOPRAZOLE 40 MG TABLET PO SCH (08:23)
[2021-04-22] MEDS: METOPROLOL TARTRATE 50 MG TAB PO SCH ×3 (08:23→21:40)
[2021-04-22] MEDS: TAMSULOSIN 0.4 MG CAP.ER.24H PO SCH (08:23)
[2021-04-22] MEDS: FERROUS SULFATE 325 MG TAB PO SCH (08:23)
--- NOTE | 2021-04-22 14:12 | PN ---
PROGRESS NOTE DATE OF SERVICE: 04/22/2021 This 65-year-old gentleman, admitted with anemia, also had adenocarcinoma of the GE junction. The patient is also complaining of significant scrotal edema. No chest pain. No palpitations. No fever. PHYSICAL EXAMINATION: Pulse is 60, blood pressure 129/70, respiration 20. CHEST: Clear to auscultation. ABDOMEN: Soft. Mild diffuse discomfort. No mass palpable. CARDIOVASCULAR: S1, S2 muffled. LEGS: Bilateral leg edema and also significant edema of the scrotum present. LABS: WBC 6.3, hemoglobin 6.3. ASSESSMENT: 1. Symptomatic anemia. 2. Esophageal gastric adenocarcinoma. 3. Obesity. 4. Scrotal edema and hydrocele. RECOMMENDATIONS AND DISCUSSION: I recommend to continue current medications, continue with the monitoring, symptomatic treatment. Repeat labs. Urology consultation. Closely follow with Hematology/Oncology. Guarded prognosis. Further recommendations to follow. Radiation Oncology is also seeing the patient. MMODL / IJN: [id number] /
[2021-04-22] MEDS: HYDROcodone/APAP 5-325MG 1 EACH TAB PO PRN (14:23)
[2021-04-22] MEDS: ATORVASTATIN 20 MG TAB PO SCH (20:07)
[2021-04-22] MEDS: traZODone HCL 100 MG TAB PO SCH (20:07)
[2021-04-23 06:18] LABS: Anisocytosis Marked; HCT 28.9 % (39.0-53.0); Hypochromasia Marked; MCH 21.2 pg (25.0-35.0); MCHC 27.9 g/dL (31.0-37.0); MCV 75.9 fL (80.0-100.0); Mean Platelet Volume 7.7; Microcytosis Marked; Platelet Count 328 k/uL (150-450); Poikilocytosis Moderate; RBC 3.81 m/uL (4.30-5.90); RDW 24.6 % (11.5-15.5); WBC 8.1 k/uL (3.8-10.6)
[2021-04-23] MEDS: TAMSULOSIN 0.4 MG CAP.ER.24H PO SCH (07:59)
[2021-04-23] MEDS: FERROUS SULFATE 325 MG TAB PO SCH (07:59)
[2021-04-23] MEDS: PANTOPRAZOLE 40 MG TABLET PO SCH ×2 (07:59→18:09)
[2021-04-23] MEDS: DILTIAZEM CD 180 MG CAP.ER.24H PO SCH ×3 (07:59→21:37)
[2021-04-23] MEDS: FUROSEMIDE 10 MG/ML 4 ML VIAL IV SCH ×2 (07:59→21:37)
[2021-04-23] MEDS: METOPROLOL TARTRATE 50 MG TAB PO SCH ×3 (07:59→21:46)
[2021-04-23] MEDS: OXYBUTYNIN 10 MG TAB.ER.24 PO SCH ×2 (07:59→21:37)
[2021-04-23] MEDS ORDERED: HYDROmorphone 0.5 MG/0.5 ML SYRINGE IVP PRN (13:00)
--- NOTE | 2021-04-23 13:07 | P.PN ---
Subjective Progress Note Date: 04/23/21 This is a pleasant 65-year-old male who was recently admitted with anemia, also had adenocarcinoma of the GE junction newly diagnosed with oncology and radiation oncology following closely. Patient also with significant scrotal swelling and edema and urology evaluated the patient. Patient has started radiation treatments and is scheduled to receive daily treatments for the rest of the week. Oncology also following and will arrange for follow-up in the outpatient setting once discharged from [facility]. Patient continues with significant weakness and working with physical therapy daily. In regards to patient's scrotal edema, urology recommends elevating the scrotum while at rest multiple times throughout the day. Patient to continue with IV Lasix 40 twice daily and will monitor functions closely. Repeat labs for the a.m. ordered. Review of systems: Constitutional: No reports of fatigue, fever, or chills Cardiovascular: No reports of chest pain or palpitations Respiratory: No reports of shortness of breath or cough GI: reports of nausea, no reports of of vomiting, no reports of diarrhea : No reports of dysuria or retention, reports continued scrotal swelling Neurovascular: reports of generalized weakness All medications have been reviewed Active Medications Acetaminophen (Acetaminophen Tab 325 Mg Tab) 650 mg PO Q6HR PRN PRN Reason: Mild Pain or Fever > 100.5 Hydrocodone Bitart/Acetaminophen (Hydrocodone/Apap 5-325mg 1 Each Tab) 1 each PO Q6HR PRN PRN Reason: Pain Last Admin: 04/22/21 14:23 Dose: 1 each Documented by: Atorvastatin Calcium (Atorvastatin 20 Mg Tab) 20 mg PO HS [facility] Last Admin: 04/22/21 20:07 Dose: 20 mg Documented by: Dicyclomine HCl (Dicyclomine 20 Mg Tab) 20 mg PO QID PRN PRN Reason: IBS Diltiazem HCl (Diltiazem Cd 180 Mg Cap.Er.24h) 180 mg PO TID [facility] Last Admin: 04/23/21 07:59 Dose: 180 mg Documented by: Ferrous Sulfate (Ferrous Sulfate 325 Mg Tab) 325 mg PO DAILY [facility] Last Admin: 04/23/21 07:59 Dose: 325 mg Documented by: Furosemide (Furosemide 10 Mg/Ml 4 Ml Vial) 40 mg IV Q12HR [facility] Last Admin: 04/23/21 07:59 Dose: 40 mg Documented by: Lorazepam (Lorazepam 2 Mg/Ml Inj) 0.5 mg IV Q6HR PRN PRN Reason: Anxiety Metoprolol Tartrate (Metoprolol Tartrate 50 Mg Tab) 100 mg PO TID [facility] Last Admin: 04/23/21 07:59 Dose: 100 mg Documented by: Morphine Sulfate (Morphine Sulfate 4 Mg/Ml Syringe) 4 mg IV Q4HR PRN PRN Reason: Severe Pain Naloxone HCl (Naloxone 0.4 Mg/Ml 1 Ml Vial) 0.2 mg IV Q2M PRN PRN Reason: Opioid Reversal Ondansetron HCl (Ondansetron 4 Mg/2 Ml Vial) 4 mg IVP Q8HR PRN PRN Reason: Nausea And Vomiting Oxybutynin Chloride (Oxybutynin 10 Mg Tab.Er.24) 10 mg PO BID [facility] Last Admin: 04/23/21 07:59 Dose: 10 mg Documented by: Pantoprazole Sodium (Pantoprazole 40 Mg Tablet) 40 mg PO AC-BRKFST [facility] Last Admin: 04/23/21 07:59 Dose: 40 mg Documented by: Tamsulosin HCl (Tamsulosin 0.4 Mg Cap.Er.24h) 0.4 mg PO DAILY [facility] Last Admin: 04/23/21 07:59 Dose: 0.4 mg Documented by: Trazodone HCl (Trazodone Hcl 100 Mg Tab) 100 mg PO HS [facility] Last Admin: 04/22/21 20:07 Dose: 100 mg Documented by: PHYSICAL EXAMINATION: GENERAL: The patient is alert and oriented x4, Well developed, well nourished. Thin built HEENT: Pupils are round and equally reacting to light. EOMI. does have scleral icterus. No conjunctival pallor. Normocephalic, atraumatic. No pharyngeal erythema. No thyromegaly. CARDIOVASCULAR: S1 and S2 muffled PULMONARY: diminished breath sounds bilaterally with no wheezing or rhonchi noted. ABDOMEN: soft. Obese. Nontender on exam. non-distended, normoactive bowel sounds. No palpable organomegaly. Significant scrotal swelling noted with some improvement today MUSCULOSKELETAL: No joint swelling or deformity. EXTREMITIES: No cyanosis, clubbing, or pedal edema. Right hip tenderness noted on palpation laterally NEUROLOGICAL: Gross neurological examination did not reveal any focal deficits. Diffuse weakness SKIN: No rashes. Assessment: Symptomatic anemia Esophageal gastric adenocarcinoma Obesity [place] scrotal edema and hydrocele GI prophylaxis DVT prophylaxis Full code Plan: Recommend to continue with current medications and management. Multiple medical consultations including radiation oncology and oncology along with urology following closely. Patient was evaluated by urology recommending elevating scrotal sac multiple times throughout the day while at rest. She'll also continue on IV Lasix 40 mg twice daily and will continue to monitor output closely. Recommend repeat labs in the morning. Patient to continue working with physical therapy daily in case management and social work also following as patient will be going to [facility] for continued PT/OT therapy for strengthening mobility prior to resuming oncological care. Patient initiated on radiation therapy palliative at this point and will continue throughout the week and will discuss further with radiation oncology about treatment plan moving forward. Patient will need close outpatient follow-up with oncology and further PET scan to determine treatment plan moving forward. Patient will follow-up with oncology in the outpatient setting after discharge from [facility]. Social work following and working on accepting facilities. Patient is agreeable with this and would like to gain some strength and mobility prior to starting treatments. Due to multiple complex medical issues, prognosis is guarded. The impression and plan of care has been dictated by Merly Tucker, nurse practitioner as directed. MD Ayanna I have performed a history and examination and MDM of this patient, discussed the same with the dictator, and agree with the dictator's assessment and plan as written ,documented as a scribe. Based on total visit time, I have performed more than 50% of the visit. Total number of minutes spent on this visit, 15 min utes. Any additional findings or plans will be noted. Objective - Vital Signs Vital signs: Vital Signs Temp 97.5 F L 04/23/21 04:40 Pulse 111 H 04/23/21 08:01 Resp 16 04/23/21 04:40 BP 137/77 04/23/21 08:01 Pulse Ox 98 04/23/21 04:40 Intake & Output 04/22/21 04/23/21 04/23/21 18:59 06:59 18:59 Intake Total 100 Output Total 3400 2800 Balance -3300 -2800 Intake: Intake, IV Titration 100 Amount Sodium Ferric Gluconat- 100 Sucrose 125 mg In Sodium Chloride 0.9% 100 ml @ 100 mls/hr IVPB DAILY [facility] Rx#:[id number] Output: Urine 3400 2800 Other: Voiding Method Indwelling Catheter Indwelling Catheter Indwelling Catheter - Labs CBC & Chem 7: 04/23/21 05:51 04/21/21 05:34 Labs: Abnormal Lab Results - Last 24 Hours (Table) 04/23/21 Range/Units 05:51 RBC 3.81 L (4.30-5.90) m/uL Hgb 8.0 L (13.0-17.5) gm/dL Hct 28.9 L (39.0-53.0) % MCV 75.9 L (80.0-100.0) fL MCH 21.2 L (25.0-35.0) pg MCHC 27.9 L (31.0-37.0) g/dL RDW 24.6 H (11.5-15.5) %
[2021-04-23 13:08] VITALS: BMI 48.1
--- NOTE | 2021-04-23 13:24 | P.PN ---
Subjective Progress Note Date: 04/22/21 Principal diagnosis: GI bleed. Newly diagnosed In f/u today pt seen by Rad Onc. Objective - Vital Signs Vital signs: Vital Signs Temp 97.3 F L 04/22/21 11:39 Pulse 60 04/22/21 11:39 Resp 22 04/22/21 11:39 BP 129/70 04/22/21 11:39 Pulse Ox 93 L 04/22/21 11:39 Intake & Output 04/21/21 04/22/21 04/22/21 18:59 06:59 18:59 Intake Total 277 590 Output Total 4100 2900 2300 Balance -382 -2310 -2300 Intake: Oral 590 Blood Product 277 Rc Pheresis As-3 Unit 277 [id number] Output: Urine 4100 2900 2300 Other: Voiding Method Indwelling Catheter Indwelling Catheter Indwelling Catheter # Bowel Movements 1 - Labs CBC & Chem 7: 04/21/21 05:34 04/21/21 05:34 Labs: Abnormal Lab Results - Last 24 Hours (Table) 04/20/21 Range/Units 02:07 Crossmatch See Detail Assessment and Plan (1) GE junction carcinoma Current Visit: Yes Status: Acute Priority: High Code(s): C16.0 - MALIGNANT NEOPLASM OF CARDIA SNOMED Code(s): 05607846 (2) Symptomatic anemia Current Visit: Yes Status: Acute Priority: High Code(s): D64.9 - ANEMIA, UNSPECIFIED SNOMED Code(s): 482530749 (3) Weakness Current Visit: Yes Status: Acute Priority: High Code(s): R53.1 - WEAKNESS SNOMED Code(s): 53768303 (4) GI hemorrhage Current Visit: Yes Status: Acute Priority: High Code(s): K92.2 - GASTROINTESTINAL HEMORRHAGE, UNSPECIFIED SNOMED Code(s): 21757592 (5) Melena Current Visit: Yes Status: Acute Priority: High Code(s): K92.1 - MELENA SNOMED Code(s): 8893634
--- NOTE | 2021-04-23 13:32 | P.PN ---
Subjective Progress Note Date: 04/23/21 Principal diagnosis: weakness, acute blood loss anemia In f/u today pt is denying any s/s bleeding, melena, abd pain. He has met with Rad Onc. Objective - Vital Signs Vital signs: Vital Signs Temp 97.5 F L 04/23/21 04:40 Pulse 111 H 04/23/21 08:01 Resp 16 04/23/21 04:40 BP 137/77 04/23/21 08:01 Pulse Ox 98 04/23/21 04:40 Intake & Output 04/22/21 04/23/21 04/23/21 18:59 06:59 18:59 Intake Total 100 Output Total 3400 2800 2200 Balance -3300 -2800 -2200 Weight 170.097 kg Intake: Intake, IV Titration 100 Amount Sodium Ferric Gluconat- 100 Sucrose 125 mg In Sodium Chloride 0.9% 100 ml @ 100 mls/hr IVPB DAILY [facility] Rx#:[id number] Output: Urine 3400 2800 2200 Other: Voiding Method Indwelling Catheter Indwelling Catheter Indwelling Catheter - Constitutional General appearance: Present: cooperative, morbidly obese, no acute distress - EENT Eyes: Present: anicteric sclerae, EOMI ENT: Present: hearing grossly normal - Respiratory Details: resp even and unlabored - Musculoskeletal Musculoskeletal: Present: generalized weakness - Psychiatric Psychiatric: Present: A&O x's 3, appropriate affect, intact judgment & insight - Labs CBC & Chem 7: 04/23/21 05:51 04/21/21 05:34 Labs: Abnormal Lab Results - Last 24 Hours (Table) 04/23/21 Range/Units 05:51 RBC 3.81 L (4.30-5.90) m/uL Hgb 8.0 L (13.0-17.5) gm/dL Hct 28.9 L (39.0-53.0) % MCV 75.9 L (80.0-100.0) fL MCH 21.2 L (25.0-35.0) pg MCHC 27.9 L (31.0-37.0) g/dL RDW 24.6 H (11.5-15.5) % Assessment and Plan (1) GE junction carcinoma Narrative/Plan: Newly diagnosed. Pt needs PET outpt to confirm no mets. He needs to participate in rehab so that he can manage ADLs and get to and from appts. Encouraged pt that if he improved his PS he will tolerate treatment better. He verbalized understanding Current Visit: Yes Status: Acute Priority: High Code(s): C16.0 - MALIGNANT NEOPLASM OF CARDIA SNOMED Code(s): 65853273 (2) Symptomatic anemia Narrative/Plan: Contributing to weakness. Acute on chronic bleeding from tumor. Pt has had IV iron, on oral iron. He received 1 unit PRBCs this admission, Hgb stable today at 8! ASA, NSAIDS, coumadin held for now SCDs for DVT prophylaxis. Current Visit: Yes Status: Acute Priority: High Code(s): D64.9 - ANEMIA, UNSPECIFIED SNOMED Code(s): 185456940 (3) Weakness Narrative/Plan: 2/2 anemia. Pt reports that at baseline he was mobile with scooter, able to transfer independently Encouraged rehab so pt can manage his ADLs and get to and from treatment appts. Pt cannot have chemo until he is discharged from rehab. He also needs staging PET scan prior to starting chemo so, that has to be planned outpt too. Current Visit: Yes Status: Acute Priority: High Code(s): R53.1 - WEAKNESS SNOMED Code(s): 12654343 (4) GI hemorrhage Narrative/Plan: Pt has intermittent melena per his reports. This is going to continue pending treatment of friable eso/gastric tumor. Rad Onc has seen pt, simulation done, plan for symptoms mgmt XRT. Hgb stable today! Carafate started. Rx sent, CM consulted to follow up for copay verification Current Visit: Yes Status: Acute Priority: High Code(s): K92.2 - GASTROINTESTINAL HEMORRHAGE, UNSPECIFIED SNOMED Code(s): 38294669 (5) Melena Narrative/Plan: Most likely 2/2 chronic blood loss from eso/gastric mass. Current Visit: Yes Status: Acute Priority: High Code(s): K92.1 - MELENA SNOMED Code(s): 3119599 Plan: attests: I have performed H&P, developed impression and plan of care. Discussed with dictator. Agree with dictation, documented as a scribe.
[2021-04-23] MEDS: HYDROcodone/APAP 5-325MG 1 EACH TAB PO PRN (14:09)
--- NOTE | 2021-04-23 15:43 | P.GSCN ---
History of Present Illness Consult date: 04/23/21 Reason for Consult: Scrotal edema History of present illness: This is a 65-year-old male admitted to the hospital with acute blood loss anemia, secondary to a gastric adenocarinoma He has required blood transfusion. Urology is consulted for scrotal edema. He indicated he's noticed that since hospital admission, initially gotten worse but indicated the past 24 hours he's noticed improvement area and he is also been complaining of lower extremity edema. Denies any pain or drainage. Denies any previous history of scrotal edema. He's been having voiding difficulty secondary to retracted penis secondary to his edema. Currently has a Sesay catheter in place draining clear yellow urine Review of Systems - Constitutional Denies fever, Denies weight loss - EENT Ears, nose, mouth and throat: Denies dysphagia - Cardiovascular Denies chest pain, Denies shortness of breath - Respiratory Denies cough, Denies 7 - Gastrointestinal Reports abdominal pain - Genitourinary Denies dysuria, Denies flank pain, Denies hematuria - Neurological Denies headaches, Denies syncope Past Medical History Past Medical History: Atrial Fibrillation, Blood Disorder, Coronary Artery Disease (CAD), Heart Failure, Deep Vein Thrombosis (DVT), Hyperlipidemia, Hypertension, Pulmonary Embolus (PE) Additional Past Medical History / Comment(s): clotting disorder MTHFR. History of Any Multi-Drug Resistant Organisms: None Reported Past Surgical History: Back Surgery Additional Past Surgical History / Comment(s): Stomach stapling Past Anesthesia/Blood Transfusion Reactions: No Reported Reaction Past Psychological History: No Psychological Hx Reported Smoking Status: Never smoker Past Alcohol Use History: None Reported Past Drug Use History: None Reported - Past Family History Father Family Medical History: Cancer Additional Family Medical History / Comment(s): Colorectal, Spinal, Pancreaitic, Liver cancer Mother Additional Family Medical History / Comment(s): Ovarian Cancer Medications and Allergies Home Medications Medication Instructions Recorded Confirmed Type Dicyclomine [Bentyl] 20 mg PO QID PRN 04/10/21 04/20/21 History Diltiazem HCl [Cartia Xt] 180 mg PO TID 04/10/21 04/20/21 History Furosemide [Lasix] 40 mg PO DAILY 04/10/21 04/20/21 History Methyl Folate 1000mcg 1 tab PO MOTHFR 04/10/21 04/20/21 History Metoprolol Tartrate [Lopressor] 100 mg PO TID 04/10/21 04/20/21 History Oxybutynin Chloride [Ditropan XL] 10 mg PO BID 04/10/21 04/20/21 History Pantoprazole [Protonix] 40 mg PO DAILY 04/10/21 04/20/21 History Simvastatin [Zocor] 40 mg PO HS 04/10/21 04/20/21 History Tamsulosin HCl [Flomax] 0.4 mg PO DAILY 04/10/21 04/20/21 History cloNIDine HCL [Catapres] 0.2 mg PO BID 04/10/21 04/20/21 History Acetaminophen Tab [Tylenol] 650 mg PO Q6HR PRN tab 04/15/21 04/20/21 Rx Aspirin 81 mg PO DAILY #3 tab 04/15/21 04/20/21 Rx Warfarin [Coumadin] 7.5 mg PO TUTHSA@0500 04/20/21 04/20/21 History Warfarin [Coumadin] 11.25 mg PO SUMOWEFR@0500 04/20/21 04/20/21 History lisinopriL [Zestril] 10 mg PO BID 04/20/21 04/20/21 History Sucralfate [Carafate] 1 gm PO ACHS #120 tablet 04/23/21 Rx Allergies Allergy/AdvReac Type Severity Reaction Status Date / Time No Known Allergies Allergy Verified 04/20/21 12:41 Surgical - Exam Vital Signs Temp Pulse Resp BP Pulse Ox 99.1 F 76 18 93/70 97 04/20/21 01:43 04/20/21 01:43 04/20/21 01:43 04/20/21 01:43 04/20/21 01:43 - General no distress, no pain - Eyes normal ocular movement - ENT normal nares, normal mucosa - Respiratory normal expansion, normal respiratory effort - Abdomen Abdomen: soft, non tender - Genitourinary Bilateral simple scrotal edema, no erythema drainage appreciated. Difficult to palpate the testicle secondary to scrotal edema - Psychiatric oriented to time, oriented to person, oriented to place Results - Labs 04/23/21 05:51 04/21/21 05:34 Abnormal Lab Results - Last 24 Hours (Table) 04/23/21 Range/Units 05:51 RBC 3.81 L (4.30-5.90) m/uL Hgb 8.0 L (13.0-17.5) gm/dL Hct 28.9 L (39.0-53.0) % MCV 75.9 L (80.0-100.0) fL MCH 21.2 L (25.0-35.0) pg MCHC 27.9 L (31.0-37.0) g/dL RDW 24.6 H (11.5-15.5) % Assessment and Plan Assessment: 65-year-old male with a significant scrotal edema. On exam consistent with simple fluid, no signs of cellulitis, has been improving the past 24 hours. From urology standpoint no acute surgical intervention, discussed with him this is secondary to third spacing. At this time I recommend continued diuresis and scrotal elevation. Sesay can be removed prior to discharge
[2021-04-23] MEDS: SUCRALFATE 1 GM TAB PO SCH ×2 (18:09→21:46)
[2021-04-23] MEDS: ATORVASTATIN 20 MG TAB PO SCH (21:37)
[2021-04-23] MEDS: traZODone HCL 100 MG TAB PO SCH (21:37)
[2021-04-24 06:50] LABS: Anisocytosis Marked; Basophils % (A) 0 %; Eosinophils # (A) 0.1 k/uL (0-0.7); Eosinophils % (A) 1 %; HCT 28.1 % (39.0-53.0); Hypochromasia Marked; Lymphocytes # (A) 0.9 k/uL (1.0-4.8); Lymphocytes % (A) 12 %; MCH 21.5 pg (25.0-35.0); MCHC 28.4 g/dL (31.0-37.0); MCV 75.6 fL (80.0-100.0); Mean Platelet Volume 7.6; Microcytosis Marked; Monocytes # (A) 0.4 k/uL (0-1.0); Monocytes % (A) 6 %; Neutrophils # (A) 6.1 k/uL (1.3-7.7); Neutrophils % (A) 79 %; Platelet Count 316 k/uL (150-450); Poikilocytosis Moderate; RBC 3.72 m/uL (4.30-5.90); WBC 7.7 k/uL (3.8-10.6)
[2021-04-24 06:53] LABS: RDW 25.4 % (11.5-15.5)
[2021-04-24 07:03] LABS: African American GFR (CKD) >90 (>60 ml/min/1.73 sqM); Anion Gap 4 mmol/L; Blood Urea Nitrogen 9 mg/dL (9-20); Calcium 7.9 mg/dL (8.4-10.2); Carbon Dioxide 33 mmol/L (22-30); Chloride 100 mmol/L (98-107); Glucose 106 mg/dL (74-99); Non-African American GFR(CKD) >90 (>60 ml/min/1.73 sqM); Potassium 3.4 mmol/L (3.5-5.1); Sodium 137 mmol/L (137-145)
[2021-04-24] MEDS ORDERED: POTASSIUM CHLORIDE ER 20 MEQ TAB.ER PO STA (09:23)
[2021-04-24] MEDS: SUCRALFATE 1 GM TAB PO SCH ×4 (09:25→20:29)
[2021-04-24] MEDS: FERROUS SULFATE 325 MG TAB PO SCH (09:25)
[2021-04-24] MEDS: PANTOPRAZOLE 40 MG TABLET PO SCH ×2 (09:26→17:26)
[2021-04-24] MEDS: OXYBUTYNIN 10 MG TAB.ER.24 PO SCH ×2 (09:26→20:29)
[2021-04-24] MEDS: TAMSULOSIN 0.4 MG CAP.ER.24H PO SCH (09:26)
[2021-04-24] MEDS: DILTIAZEM CD 180 MG CAP.ER.24H PO SCH ×3 (09:27→22:08)
[2021-04-24] MEDS: METOPROLOL TARTRATE 50 MG TAB PO SCH ×3 (09:31→22:08)
[2021-04-24] MEDS: FUROSEMIDE 10 MG/ML 4 ML VIAL IV SCH ×2 (09:36→20:29)
[2021-04-24] MEDS: HYDROcodone/APAP 5-325MG 1 EACH TAB PO PRN (09:41)
[2021-04-24] MEDS ORDERED: QUEtiapine 25 MG TAB PO PRN (12:13)
--- NOTE | 2021-04-24 13:12 | P.PN ---
Subjective Progress Note Date: 04/24/21 This is a pleasant 65-year-old male who was recently admitted with anemia, also had adenocarcinoma of the GE junction newly diagnosed with oncology and radiation oncology following closely. Patient also with significant scrotal swelling and edema and urology evaluated the patient. Patient has started radiation treatments and is scheduled to receive daily treatments for the rest of the week. Oncology also following and will arrange for follow-up in the outpatient setting once discharged from [facility]. Patient continues with significant weakness and working with physical therapy daily. In regards to patient's scrotal edema, urology recommends elevating the scrotum while at rest multiple times throughout the day. Patient to continue with IV Lasix 40 twice daily and will monitor functions closely. Repeat labs for the a.m. ordered. 04/24/2021 Patient is seen and evaluated this morning and continues to receive radiation therapy. Case management and social work following and working with [facility] to arrange for continued PT/OT therapy and also arranging for palliative radiation while at [facility]. Patient continues on IV Lasix twice daily and showing improvement in overall swelling. Oncology also following and will be arranging for outpatient follow-up and further testing including PET scan. Patient working with physical therapy daily and continues with weakness. Hemoglobin is improved today and stable at 8.0. Potassium mildly low at 3.4 and will replace per protocol and recommend repeat labs. Encouraged oral intake and increased activity as tolerated. Patient is afebrile and currently denies any chest pain or shortness of breath. Review of systems: Constitutional: No reports of fatigue, fever, or chills Cardiovascular: No reports of chest pain or palpitations Respiratory: No reports of shortness of breath or cough GI: no reports of nausea, no reports of of vomiting, no reports of diarrhea, reports abdominal discomfort : No reports of dysuria or retention, reports continued scrotal swelling that feels is improving Neurovascular: reports of generalized weakness All medications have been reviewed Active Medications Acetaminophen (Acetaminophen Tab 325 Mg Tab) 650 mg PO Q6HR PRN PRN Reason: Mild Pain or Fever > 100.5 Hydrocodone Bitart/Acetaminophen (Hydrocodone/Apap 5-325mg 1 Each Tab) 1 each PO Q6HR PRN PRN Reason: Pain Last Admin: 04/24/21 09:41 Dose: 1 each Documented by: Atorvastatin Calcium (Atorvastatin 20 Mg Tab) 20 mg PO HS MARK Last Admin: 04/23/21 21:37 Dose: 20 mg Documented by: Dicyclomine HCl (Dicyclomine 20 Mg Tab) 20 mg PO QID PRN PRN Reason: IBS Diltiazem HCl (Diltiazem Cd 180 Mg Cap.Er.24h) 180 mg PO TID [facility] Last Admin: 04/24/21 09:27 Dose: 180 mg Documented by: Ferrous Sulfate (Ferrous Sulfate 325 Mg Tab) 325 mg PO DAILY [facility] Last Admin: 04/24/21 09:25 Dose: 325 mg Documented by: Folic Acid (Folic Acid 1 Mg Tab) 1 mg PO DAILY@1200 MARK Furosemide (Furosemide 10 Mg/Ml 4 Ml Vial) 40 mg IV Q12HR [facility] Last Admin: 04/24/21 09:36 Dose: 40 mg Documented by: Hydromorphone HCl (Hydromorphone 0.5 Mg/0.5 Ml Syringe) 0.5 mg IVP Q6HR PRN PRN Reason: Pain Lorazepam (Lorazepam 2 Mg/Ml Inj) 0.5 mg IV Q6HR PRN PRN Reason: Anxiety Metoprolol Tartrate (Metoprolol Tartrate 50 Mg Tab) 100 mg PO TID [facility] Last Admin: 04/24/21 09:31 Dose: 100 mg Documented by: Multivitamins (Multivitamins, Thera 1 Each Tab) 1 each PO DAILY@1200 MARK Naloxone HCl (Naloxone 0.4 Mg/Ml 1 Ml Vial) 0.2 mg IV Q2M PRN PRN Reason: Opioid Reversal Ondansetron HCl (Ondansetron 4 Mg/2 Ml Vial) 4 mg IVP Q8HR PRN PRN Reason: Nausea And Vomiting Oxybutynin Chloride (Oxybutynin 10 Mg Tab.Er.24) 10 mg PO BID [facility] Last Admin: 04/24/21 09:26 Dose: 10 mg Documented by: Pantoprazole Sodium (Pantoprazole 40 Mg Tablet) 40 mg PO AC-BID [facility] Last Admin: 04/24/21 09:26 Dose: 40 mg Documented by: Quetiapine Fumarate (Quetiapine 25 Mg Tab) 12.5 mg PO HS PRN PRN Reason: Agitation Sucralfate (Sucralfate 1 Gm Tab) 1 gm PO ACHS [facility] Last Admin: 04/24/21 11:49 Dose: 1 gm Documented by: Tamsulosin HCl (Tamsulosin 0.4 Mg Cap.Er.24h) 0.4 mg PO DAILY [facility] Last Admin: 04/24/21 09:26 Dose: 0.4 mg Documented by: Thiamine HCl (Thiamine 100 Mg Tab) 100 mg PO DAILY@1200 MARK Trazodone HCl (Trazodone Hcl 100 Mg Tab) 100 mg PO HS [facility] Last Admin: 04/23/21 21:37 Dose: 100 mg Documented by: PHYSICAL EXAMINATION: GENERAL: The patient is alert and oriented x4, Well developed, well nourished. Morbidly obese HEENT: Pupils are round and equally reacting to light. EOMI. does have scleral icterus. No conjunctival pallor. Normocephalic, atraumatic. No pharyngeal erythema. No thyromegaly. CARDIOVASCULAR: S1 and S2 muffled PULMONARY: diminished breath sounds bilaterally with no wheezing or rhonchi noted. ABDOMEN: soft. Obese. Nontender on exam. non-distended, normoactive bowel s ounds. No palpable organomegaly. scrotal swelling noted with some improvement today MUSCULOSKELETAL: No joint swelling or deformity. EXTREMITIES: No cyanosis, clubbing, or pedal edema. NEUROLOGICAL: Gross neurological examination did not reveal any focal deficits. Diffuse weakness SKIN: No rashes. 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 Multiple medical consultations including radiation oncology and oncology along with urology following closely. Patient was evaluated by urology recommending elevating scrotal sac multiple times throughout the day while at rest. Patient will also continue on IV Lasix 40 mg twice daily and will continue to monitor output closely. Potassium mildly low at 3.4 and will replace per protocol repeat labs. Hemoglobin is stable at 8.0 with no active bleeding noted. Patient to continue working with physical therapy daily in case management and social work also following as patient will be going to [facility] for continued PT/OT therapy for strengthening mobility prior to resuming oncological care. Patient initiated on radiation therapy palliative and will continue and will follow with radiation oncology outpatient. [facility] reviewing the case and possibly can accommodate transportation to radiation treatments daily for palliative purposes. Patient will need close outpatient follow-up with oncology and further PET scan to det ermine treatment plan moving forward. Patient will follow-up with oncology in the outpatient setting after discharge from [facility]. Patient is agreeable to attend [facility] for continued PT/OT therapy for strengthening mobility prior to initiating oncological treatment. This was discussed with oncology team along with radiation oncology, patient, and case management and social work. Due to multiple complex medical issues, prognosis is guarded. Possible discharge in 24 hours. The impression and plan of care has been dictated by Merly Tucker, nurse practitioner as directed. MD Ayanna I have performed a history and examination and MDM of this patient, discussed the same with the dictator, and agree with the dictator's assessment and plan as written ,documented as a scribe. Based on total visit time, I have performed more than 50% of the visit. Total number of minutes spent on this visit, 15 minutes. Any additional findings or plans will be noted. Objective - Vital Signs Vital signs: Vital Signs Temp 97.9 F 04/24/21 05:00 Pulse 89 04/24/21 05:00 Resp 16 04/24/21 05:00 BP 156/68 04/24/21 05:00 Pulse Ox 99 04/24/21 05:00 Intake & Output 04/23/21 04/24/21 04/24/21 18:59 06:59 18:59 Output Total 3000 2300 1000 Balance -3000 -2300 -1000 Weight 170.097 kg Output: Urine 3000 2300 1000 Other: Voiding Method Indwelling Catheter Indwelling Catheter - Labs CBC & Chem 7: 04/24/21 06:00 04/24/21 06:00 Labs: Abnormal Lab Results - Last 24 Hours (Table) 04/24/21 04/24/21 Range/Units 06:00 06:00 RBC 3.72 L (4.30-5.90) m/uL Hgb 8.0 L (13.0-17.5) gm/dL Hct 28.1 L (39.0-53.0) % MCV 75.6 L (80.0-100.0) fL MCH 21.5 L (25.0-35.0) pg MCHC 28.4 L (31.0-37.0) g/dL RDW 25.4 H (11.5-15.5) % Lymphocytes # 0.9 L (1.0-4.8) k/uL Potassium 3.4 L (3.5-5.1) mmol/L Carbon Dioxide 33 H (22-30) mmol/L Glucose 106 H (74-99) mg/dL Calcium 7.9 L (8.4-10.2) mg/dL
[2021-04-24] MEDS: THIAMINE 100 MG TAB PO SCH (13:16)
[2021-04-24] MEDS: MULTIVITAMINS, THERA 1 EACH TAB PO SCH (13:16)
[2021-04-24] MEDS: FOLIC ACID 1 MG TAB PO SCH (13:16)
--- NOTE | 2021-04-24 14:04 | P.PN ---
Subjective Progress Note Date: 04/24/21 Principal diagnosis: weakness, acute blood loss anemia, eso adeno In f/u today pt is denying any s/s bleeding, melena, abd pain. The pain he does have is in the epigastric area. He has started XRT. Objective - Vital Signs Vital signs: Vital Signs Temp 98.1 F 04/24/21 11:24 Pulse 68 04/24/21 11:24 Resp 16 04/24/21 11:24 BP 119/70 04/24/21 11:24 Pulse Ox 94 L 04/24/21 11:24 Intake & Output 04/23/21 04/24/21 04/24/21 18:59 06:59 18:59 Output Total 3000 2300 3000 Balance -3000 -2300 -3000 Weight 170.097 kg Output: Urine 3000 2300 3000 Other: Voiding Method Indwelling Catheter Indwelling Catheter - Constitutional General appearance: Present: morbidly obese - EENT Eyes: Present: abnormal pupil, EOMI ENT: Present: hearing grossly normal, normal oropharynx - Respiratory Respiratory: bilateral: CTA, diminished - Cardiovascular Rhythm: regular Heart sounds: normal: S1, S2 Abnormal Heart Sounds: Absent: systolic murmur, diastolic murmur, rub, S3 Gallop, S4 Gallop, click, other - Gastrointestinal General gastrointestinal: Present: normal bowel sounds, soft - Neurologic Neurologic: Present: CNII-XII intact - Musculoskeletal Musculoskeletal: Present: generalized weakness, strength equal bilaterally - Psychiatric Psychiatric: Present: A&O x's 3, appropriate affect, intact judgment & insight - Labs CBC & Chem 7: 04/24/21 06:00 04/24/21 06:00 Labs: Abnormal Lab Results - Last 24 Hours (Table) 04/24/21 04/24/21 Range/Units 06:00 06:00 RBC 3.72 L (4.30-5.90) m/uL Hgb 8.0 L (13.0-17.5) gm/dL Hct 28.1 L (39.0-53.0) % MCV 75.6 L (80.0-100.0) fL MCH 21.5 L (25.0-35.0) pg MCHC 28.4 L (31.0-37.0) g/dL RDW 25.4 H (11.5-15.5) % Lymphocytes # 0.9 L (1.0-4.8) k/uL Potassium 3.4 L (3.5-5.1) mmol/L Carbon Dioxide 33 H (22-30) mmol/L Glucose 106 H (74-99) mg/dL Calcium 7.9 L (8.4-10.2) mg/dL Assessment and Plan (1) GE junction carcinoma Narrative/Plan: Newly diagnosed. Staging PET after DC from rehab is planned. He needs to participate in rehab so that he can manage ADLs and get to and from appts. Encouraged pt that if he improved his PS he will tolerate treatment better. He verbalized understanding Current Visit: Yes Status: Acute Priority: High Code(s): C16.0 - MALIGNANT NEOPLASM OF CARDIA SNOMED Code(s): 48609124 (2) Symptomatic anemia Narrative/Plan: Contributing to weakness. Acute on chronic bleeding from tumor. Pt has had IV iron, on oral iron. He received 1 unit PRBCs this admission, Hgb stable today at 8! ASA, NSAIDS, coumadin held for now SCDs for DVT prophylaxis. Current Visit: Yes Status: Acute Priority: High Code(s): D64.9 - ANEMIA, UNSPECIFIED SNOMED Code(s): 738108364 (3) Weakness Narrative/Plan: 2/2 anemia. Pt reports that at baseline he was mobile with scooter, able to transfer independently Discussed with [facility] [employer]. Pt has been accepted to rehab and they will provide transportation for initial palliative XRT. Treatment radiation and chem o will not start until pt has been discharged from rehab. Current Visit: Yes Status: Acute Priority: High Code(s): R53.1 - WEAKNESS SNOMED Code(s): 61958019 (4) GI hemorrhage Narrative/Plan: Pt has intermittent melena per his reports. This is going to continue pending treatment of friable eso/gastric tumor. Rad Onc has seen pt, simulation done, XRT started. Hgb is stable again today! Carafate started. Rx sent, CM consulted to follow up for copay verification Current Visit: Yes Status: Acute Priority: High Code(s): K92.2 - GASTROINTESTINAL HEMORRHAGE, UNSPECIFIED SNOMED Code(s): 02224646 (5) Melena Narrative/Plan: Most likely 2/2 chronic blood loss from eso/gastric mass. Current Visit: Yes Status: Acute Priority: High Code(s): K92.1 - MELENA SNOMED Code(s): 9705892 Plan: Attests: I have performed H&P, developed impression and plan of care, discussed with dictator. Agree with dictation, documented as a scribe.
[2021-04-24 19:41] VITALS: RESP 20
[2021-04-24] MEDS: ATORVASTATIN 20 MG TAB PO SCH (20:29)
[2021-04-24] MEDS: traZODone HCL 100 MG TAB PO SCH (20:29)
[2021-04-25] MEDS: FUROSEMIDE 10 MG/ML 4 ML VIAL IV SCH (08:54)
[2021-04-25] MEDS: DILTIAZEM CD 180 MG CAP.ER.24H PO SCH (08:55)
[2021-04-25] MEDS: FERROUS SULFATE 325 MG TAB PO SCH (08:55)
[2021-04-25] MEDS: TAMSULOSIN 0.4 MG CAP.ER.24H PO SCH (08:55)
[2021-04-25] MEDS: SUCRALFATE 1 GM TAB PO SCH ×2 (08:55→13:34)
[2021-04-25] MEDS: METOPROLOL TARTRATE 50 MG TAB PO SCH (08:55)
[2021-04-25] MEDS: PANTOPRAZOLE 40 MG TABLET PO SCH (08:55)
[2021-04-25] MEDS: OXYBUTYNIN 10 MG TAB.ER.24 PO SCH (08:55)
[2021-04-25 11:44] VITALS: BP 125/69; PULSE 88; TEMP 98
--- NOTE | 2021-04-25 13:17 | P.DS ---
Providers Date of admission: 04/20/21 04:23 Expected date of discharge: 04/25/21 Attending physician: Joana Sauer Consults: 04/20/21 04:24 Consult Physician Routine Consulting Provider: Lokesh Vazquez Consult Reason/Comments: [place] Do you want consulting provider notified?: Yes 04/21/21 11:19 Consult Physician Routine Consulting Provider: David Mcgowan Consult Reason/Comments: Acute bleeding from eso/gastric malignancy Do you want consulting provider notified?: Already Contacted 04/22/21 11:20 Consult Physician Urgent Consulting Provider: Yosvany Landers Consult Reason/Comments: scrotal swelling Do you want consulting provider notified?: Yes Primary care physician: Stated None Hospital Course: Final diagnosis Symptomatic anemia 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 Patient will follow-up with Dr. Yu in the outpatient setting upon discharge. Patient is to continue with palliative radiation and continue to follow with Dr. Mcgowan radiation oncology as scheduled. Patient will be following with oncology in the outpatient setting once discharged from ECF. Arrangements being made for outpatient PET scan once discharged from ECF. Total time taken is greater than 35 minutes. Hospital course This Is a 65-year-old male who was recently admitted with symptomatic anemia also found to have an adenocarcinoma of the GE junction that was newly diagnosed with oncology and radiation oncology following. Patient has started radiation treatments for palliative purposes in attempts to alleviate some of the bleeding. Patient normally on warfarin although currently on hold for this GI bleed. Patient continues with significant weakness and will be going to [facility] for continued PT/OT therapy. Plan is for patient to build up strength in order to tolerate possible chemo treatments and treatment plan moving forward. Patient is agreeable to hold from any oncological treatments at this time during ECF to continue with aggressive physical therapy. Patient will follow-up with oncology and PET scan once discharged from ECF. Patient has been seeing radiation oncology and will continue palliative treatment at this time as mentioned previously. Patient also to continue with Lasix to 40 mg twice daily for the next 1 week and then titrate the dose down to 40 mg daily thereafter as patient had some significant lower extremity and scrotal swelling. Patient having difficulty urinating due to the scrotal swelling and will continue with indwelling Sesay catheter and trial void in the outpatient setting. Also recommend repeat labs in 2-3 days to monitor electrolytes and kidney functions along with hemoglobin levels closely. Currently no reports of chest pain, shortness of breath, or palpitations. Patient is afebrile. No reports of nausea or vomiting and patient is tolerating diet. Patient will be discharged to [facility] on the cuellar today. Guarded prognosis. On exam vital signs are stable. Cardio S1, S2 are muffled. Respiratory system shows diminished breath sounds at the bases with no wheezing or rhonchi noted. Abdomen is soft and obese, and nontender. Nervous system shows diffuse weakness. Please refer to medication reconciliation sheet for a list of medications. The impression and plan of care has been dictated by Merly Tucker, nurse practitioner as directed. MD Ayanna I have performed a history and examination and MDM of this patient, discussed the same with the dictator, and agree with the dictator's assessment and plan as written ,documented as a scribe. Based on total visit time, I have performed more than 50% of the visit. Total number of minutes spent on this visit, 10 minutes. Any additional findings or plans will be noted. Patient Condition at Discharge: Fair Plan - Discharge Summary Discharge Rx Participant: Yes New Discharge Prescriptions: New Sucralfate [Carafate] 1 gm PO ACHS tab HYDROcodone/APAP 5-325MG [Olanta 5-325] 1 each PO Q6HR PRN #6 tab PRN Reason: Pain Pantoprazole [Protonix] 40 mg PO AC-BID tab QUEtiapine [SEROquel] 12.5 mg PO HS PRN tab PRN Reason: Agitation Sucralfate [Carafate] 1 gm PO ACHS #120 tablet traZODone HCL [Desyrel] 100 mg PO HS tab Folic Acid 1 mg PO DAILY@1200 tab Ferrous Sulfate [Iron (65 MG Elemental)] 325 mg PO DAILY tab Multivitamins, Thera [Multivitamin (formulary)] 1 each PO DAILY@1200 tab Thiamine [Vitamin B-1] 100 mg PO DAILY@1200 tab Continue Methyl Folate 1000mcg 1 tab PO MOTHFR Acetaminophen Tab [Tylenol] 650 mg PO Q6HR PRN tab PRN Reason: Mild Pain Or Fever > 100.5 Tamsulosin HCl [Flomax] 0.4 mg PO DAILY Simvastatin [Zocor] 40 mg PO HS Oxybutynin Chloride [Ditropan XL] 10 mg PO BID Metoprolol Tartrate [Lopressor] 100 mg PO TID Diltiazem HCl [Cartia Xt] 180 mg PO TID Dicyclomine [Bentyl] 20 mg PO QID PRN PRN Reason: IBS Changed Furosemide [Lasix] 40 mg PO BID #0 Discontinued Aspirin 81 mg PO DAILY #3 tab lisinopriL [Zestril] 10 mg PO BID Pantoprazole [Protonix] 40 mg PO DAILY cloNIDine HCL [Catapres] 0.2 mg PO BID Warfarin [Coumadin] 7.5 mg PO TUTHSA@0500 Warfarin [Coumadin] 11.25 mg PO SUMOWEFR@0500 Discharge Medication List Dicyclomine [Bentyl] 20 mg PO QID PRN 04/10/21 [History] Diltiazem HCl [Cartia Xt] 180 mg PO TID 04/10/21 [History] Methyl Folate 1000mcg 1 tab PO MOTHFR 04/10/21 [History] Metoprolol Tartrate [Lopressor] 100 mg PO TID 04/10/21 [History] Oxybutynin Chloride [Ditropan XL] 10 mg PO BID 04/10/21 [History] Simvastatin [Zocor] 40 mg PO HS 04/10/21 [History] Tamsulosin HCl [Flomax] 0.4 mg PO DAILY 04/10/21 [History] Acetaminophen Tab [Tylenol] 650 mg PO Q6HR PRN tab 04/15/21 [Rx] Sucralfate [Carafate] 1 gm PO ACHS #120 tablet 04/23/21 [Rx] Ferrous Sulfate [Iron (65 MG Elemental)] 325 mg PO DAILY tab 04/25/21 [Rx] Folic Acid 1 mg PO DAILY@1200 tab 04/25/21 [Rx] Furosemide [Lasix] 40 mg PO BID #0 04/25/21 [Rx] HYDROcodone/APAP 5-325MG [Olanta 5-325] 1 each PO Q6HR PRN #6 tab 04/25/21 [Rx] Multivitamins, Thera [Multivitamin (formulary)] 1 each PO DAILY@1200 tab 04/25/21 [Rx] Pantoprazole [Protonix] 40 mg PO AC-BID tab 04/25/21 [Rx] QUEtiapine [SEROquel] 12.5 mg PO HS PRN tab 04/25/21 [Rx] Sucralfate [Carafate] 1 gm PO ACHS tab 04/25/21 [Rx] Thiamine [Vitamin B-1] 100 mg PO DAILY@1200 tab 04/25/21 [Rx] traZODone HCL [Desyrel] 100 mg PO HS tab 04/25/21 [Rx] Follow up Appointment(s)/Referral(s): Anisa Bond [Other] - As Needed Nikolai Yu MD [STAFF PHYSICIAN] - 1-2 Days Jason Urrutia MD [STAFF PHYSICIAN] - 3 Weeks (After discharge from rehab) Ambulatory/Diagnostic Orders: Complete Blood Count w/diff [LAB.AMB] Time Frame: 3 Days, Location: None Selected Activity/Diet/Wound Care/Special Instructions: KARMANOS - ALHAJI ENTRANCE Remaining radiation treatment - 04.28.21 AT 1200 Patient is going to [facility] on the [employer] Activity as tolerated Continue following with radiation oncology as scheduled Hold Coumadin for now and recommend repeat labs of monitoring CBC and BMP closely in 2-3 days Patient is follow-up with oncology in the outpatient setting once discharged from ECF Continue regular diet continue with ensure enlive 3 times a day with meals Discharge Disposition: TRANSFER TO SNF/ECF
[2021-04-25] MEDS: FOLIC ACID 1 MG TAB PO SCH (13:34)
[2021-04-25] MEDS: MULTIVITAMINS, THERA 1 EACH TAB PO SCH (13:34)
[2021-04-25] MEDS: THIAMINE 100 MG TAB PO SCH (13:34)
== END 2021-04-25 14:48 | DRG 375 ==
LOC: EC 01:37 → 5NMEDONC 04:23
PROVIDERS: ADMIT Hospitalist; ATTEND Hospitalist
PROC: 30233N1 Transfusion of Nonautologous Red Blood Cells into Peripheral Vein, Percutaneous Approach (ICD-10-PCS; principal; 2021-04-21)
DX: C16.0 Malignant neoplasm of cardia (principal); D62 Acute posthemorrhagic anemia; Z68.42 Body mass index [BMI] 45.0-49.9, adult; E72.12 Methylenetetrahydrofolate reductase deficiency; I48.20 Chronic atrial fibrillation, unspecified; K92.1 Melena; E66.01 Morbid (severe) obesity due to excess calories; E78.5 Hyperlipidemia, unspecified; E87.6 Hypokalemia; G47.30 Sleep apnea, unspecified; G89.29 Other chronic pain; I50.9 Heart failure, unspecified; I11.0 Hypertensive heart disease with heart failure; I25.10 Atherosclerotic heart disease of native coronary artery without angina pectoris; I87.2 Venous insufficiency (chronic) (peripheral); K63.5 Polyp of colon; N43.3 Hydrocele, unspecified; Z53.29 Procedure and treatment not carried out because of patient's decision for other reasons; N50.89 Other specified disorders of the male genital organs; R26.9 Unspecified abnormalities of gait and mobility; Z79.01 Long term (current) use of anticoagulants; Z79.82 Long term (current) use of aspirin; Z79.899 Other long term (current) drug therapy; Z80.0 Family history of malignant neoplasm of digestive organs; Z85.028 Personal history of other malignant neoplasm of stomach; Z86.711 Personal history of pulmonary embolism; Z86.718 Personal history of other venous thrombosis and embolism
CPT/HCPCS: 36415; 71045; 77280; 77290; 77295; 77300; 77332; 77334; 77387; 77412; 80048; 80053; 81003; 83735; 83880; 84100; 84484; 85025; 85027; 85610; 85730; 86850; 86900; 86901; 86920; 93005; 96374; 96375; 99291

== ENCOUNTER → 2021-05-09 | Outpatient (CLI) | payer MEDICARE, BC ==
--- NOTE | 2021-05-12 09:46 | PE ---
EXAMINATION TYPE: PET CT fusion skull to thigh DATE OF EXAM: 05/09/2021 COMPARISON: Whole-body CT April 12, 2021. HISTORY: Gastric cancer initial staging study diagnosed on biopsy May 02, 2021 began radiation irasema tment per patient.. TECHNIQUE: Following the intravenous administration of 10.26 mCi of F-18 FDG, whole body images are performed from the skull base to the midthigh. Images are reviewed on the computer in the coronal, a xial, and sagittal planes. Reconstructed rotating images are created on independent workstation and reviewed on the computer. A localization and attenuation correction CT is performed in conjunction with the PET scan. Blood glucose level was 97. SCAN: Initial Scan FINDINGS: Suboptimal due to large body habitus. SKULL BASE AND NECK: No areas of abnormal hypermetabolic uptake. CHEST, MEDIASTINUM, AND HILAR REGION: No areas of abnormal hypermetabolic uptake. Elevated right marie diaphragm redemonstrated. ABDOMEN AND PELVIS: Multiple surgical clips along the margins of the stomach with internal linear den sity causing streak artifact redemonstrated. Internal debris is present. Mild to moderate wall thicke sheron at level of diaphragmatic hiatus with mild hypermetabolic uptake, max SUV is 2.96 axial image 14 3. No definitive areas of abnormal hypermetabolic uptake throughout remainder of the abdomen or pelvi s. OSSEOUS STRUCTURES: No definitive lesions of abnormal hypermetabolic uptake. OTHER CT: Spine is straightened with moderate multilevel disc space narrowing. There is right interna l jugular Mediport catheter terminating at the brachiocephalic confluence. There is cardiomegaly with severe three-vessel coronary artery calcification. Cortical thinning in both kidneys. Distal colonic diverticula. Urinary bladder poorly distended with mild to moderate concentric wall thickening. Mildly enlarged prostate consistent with BPH. IMPRESSION: Suboptimal study due to large body habitus. Primary gastric cancer not well visualized. N o convincing evidence for metastatic disease.
== END | disposition home or self-care (01) ==
LOC: RADXRMAIN 10:27
PROVIDERS: ATTEND Internal Medicine Hematology & Oncology
DX: C16.0 Malignant neoplasm of cardia (principal)
CPT/HCPCS: 78815; A9552

== ENCOUNTER 2021-08-01 11:30 | Day surgery (SDC) | payer MEDICARE, BC ==
[~2021-08-01 11:30] MED LIST: LACTATED RINGERS 1,000 ML IV SCH; LIDOCAINE 1% (10MG/ML) FOR IV START INTRADERMA PRN
[2021-08-01 13:15] VITALS: TEMP 98.5
[2021-08-01] MEDS ORDERED: LACTATED RINGERS 1,000 ML IV ONE (13:15)
[2021-08-01] MEDS ORDERED: LIDOCAINE 2% INJ 20 MG/ML (2 ML VIAL) ONE (13:54)
[2021-08-01] MEDS ORDERED: PROPOFOL 10 MG/ML 20 ML VIAL IV ONE (13:54)
--- NOTE | 2021-08-01 14:15 | P.PCN ---
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 He presently undergoing chemotherapy and finished a course of radiation therapy a month ago. His been having epigastric pain and intermittent dysphagia to solids.. PROCEDURE PERFORMED: Esophagogastroduodenoscopy with biopsy. PREOPERATIVE DIAGNOSIS: History of distal esophageal/GE junction adenocarcinoma diagnosed in March 2019 centimeters. IV sedation per anesthesia. PROCEDURE: After informed consent was obtained, the patient was brought into the endoscopy unit. IV sedation was administered by Anesthesia under continuous monitoring. Initially the Olympus GIF-140 video endoscope was inserted into the mouth. Esophagus intubated without any difficulty. It was gradually advanced into the stomach and duodenum and carefully examined. The bulb and the second part of the duodenum appeared normal. The scope at this time was withdrawn to the stomach, adequately insufflated with air, and upon careful examination, mucosa of the antrum, body, appeared normal. On retroflexion there was severe erythema and friability of the mucosain the cardia and the fundus consistent with radiation-induced gastritis. No obvious mass identified. The scope was then withdrawn into the esophagus. the GE junction was located at 45 cm from the incisors and there was severe erythema noted at the GE junction but no ulcerations noted. Biopsies were done from the GE junction. There was early distal esophageal stricture extending from 40-45 cm from the incisors and just above radiation-induced esophageal stricture. Abscesses were done from this area. The scope couldn't be advanced to this area without any difficulty. . The rest of the esophagus appeared normal. The patient tolerated the procedure well. IMPRESSION: 1. 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 2. Distal esophageal early radiation-induced stricture with severe erythema at the GE junction consistent with radiation induced esophagitis 3. No esophageal mass identified RECOMMENDATIONS: The findings of this examination were discussed with the p atient as well as his family. He was advised to follow with the biopsy results..Continue with a soft diet. Continue with Protonix 40 mg twice daily and Carafate as needed.
[2021-08-01 14:41] VITALS: BP 161/94; PULSE 73; RESP 15
== END 2021-08-01 15:00 | disposition home or self-care (01) ==
LOC: ORWHC2ENDO 11:30
PROVIDERS: ATTEND Internal Medicine Gastroenterology
DX: C16.0 Malignant neoplasm of cardia (principal); K29.50 Unspecified chronic gastritis without bleeding; K22.2 Esophageal obstruction; W88.1XXA Exposure to radioactive isotopes, initial encounter; I25.10 Atherosclerotic heart disease of native coronary artery without angina pectoris; I11.0 Hypertensive heart disease with heart failure; I50.9 Heart failure, unspecified; I48.91 Unspecified atrial fibrillation; E78.5 Hyperlipidemia, unspecified; Z86.711 Personal history of pulmonary embolism; G47.33 Obstructive sleep apnea (adult) (pediatric); Z92.21 Personal history of antineoplastic chemotherapy; Z92.3 Personal history of irradiation; Z79.01 Long term (current) use of anticoagulants; Z79.899 Other long term (current) drug therapy; Z98.84 Bariatric surgery status
CPT/HCPCS: 88305; 88312; 88342; 43239; J1642; J2704; J2001

== ENCOUNTER → 2021-08-15 | Outpatient (CLI) | payer MEDICARE, BC ==
--- NOTE | 2021-08-19 19:28 | PE ---
EXAMINATION TYPE: PET CT fusion skull to thigh DATE OF EXAM: 08/15/2021 COMPARISON: Prior PET/CT May 09, 2021 and older studies HISTORY: Gastric cancer diagnosed April 2021 completed radiation treatment in June, currently on ron motherapy. TECHNIQUE: Following the intravenous administration of 8.61 mCi of F-18 FDG, whole body images are p erformed from the skull base to the midthigh. Images are reviewed on the computer in the coronal, ax ial, and sagittal planes. Reconstructed rotating images are created on independent workstation and r eviewed on the computer. A localization and attenuation correction CT is performed in conjunction w ith the PET scan. Blood glucose level equals 104. SCAN: Subsequent Scan FINDINGS: Suboptimal study due to large body habitus. SKULL BASE AND NECK: New symmetric hypermetabolic uptake masseter muscles presumed product of chewin g food or chattering teeth prior to exam. Nonspecific uptake in the anterior tongue base current stud y. No new abnormal hypermetabolic adenopathy. CHEST, MEDIASTINUM, AND HILAR REGION: No new areas of abnormal hypermetabolic uptake. Elevated right hemidiaphragm redemonstrated. ABDOMEN AND PELVIS: Multiple surgical clips along the posterior margins of the stomach causing streak artifact redemonstrated. Less prominent distention on current study. Mild to moderate wall thickenin g distal esophagus up to level of diaphragmatic hiatus is ametabolic currently. No definitive areas o f abnormal hypermetabolic uptake throughout remainder of the abdomen or pelvis. Cortical thinning and excretion is identified. OSSEOUS STRUCTURES: No new lesions of abnormal hypermetabolic uptake. OTHER CT: Spine is straightened with moderate multilevel disc space narrowing and spurring. There is stable right internal jugular Mediport catheter . There is cardiomegaly with severe three-vessel katy nary artery calcification redemonstrated. Cortical thinning in both kidneys. Few Distal colonic diverticula redemonstrated. Prostate gland uppe r limits of normal in size. IMPRESSION: Suboptimal study due to large body habitus. No areas of abnormal hypermetabolic uptake to suggest persistent active malignancy or new metastatic malignancy.
== END | disposition home or self-care (01) ==
LOC: RADPETMAIN 11:07
PROVIDERS: ATTEND Internal Medicine Hematology & Oncology
DX: C16.0 Malignant neoplasm of cardia (principal)
CPT/HCPCS: 78815; A9552

== ENCOUNTER 2022-05-08 17:11 | Emergency (ER) | payer MEDICARE, BC ==
[2022-05-08] MEDS ORDERED: SODIUM CHLORIDE 0.9% 1,000 ML IV STA (17:34)
[2022-05-08] MEDS ORDERED: ONDANSETRON 4 MG/2 ML VIAL IVP STA (17:34)
[2022-05-08] MEDS ORDERED: IOPAMIDOL CONTRAST (ORAL USE) VIAL PO PRN (17:34)
[2022-05-08] MEDS ORDERED: HYDROmorphone 1 MG/ML 1 ML SYRINGE IVP STA (17:35)
[2022-05-08] MEDS ORDERED: FAMOTIDINE 20 MG/2 ML VIAL IV STA (17:35)
--- NOTE | 2022-05-08 17:38 | ED ---
General Adult HPI - General Chief complaint: Abdominal Pain Stated complaint: ABD PAIN Time Seen by Provider: 05/08/22 17:14 Source: patient, family, EMS, RN notes reviewed Mode of arrival: EMS Limitations: no limitations - History of Present Illness Initial comments: Patient is a pleasant 66-year-old male presenting to the emergency department with concerns for abdominal pain. 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 Patient did have radiation and chemotherapy with recurrent metastasis with a large liver lesion. Past 3 days patient has had decreased oral intake, no solid foods and limited fluids. Nelda ent also has had increased pain that is starting to become severe. - Related Data Home Medications Medication Instructions Recorded Confirmed Dicyclomine [Bentyl] 20 mg PO QID PRN 04/10/21 05/08/22 Metoprolol Tartrate [Lopressor] 100 mg PO TID 04/10/21 05/08/22 Oxybutynin Chloride [Ditropan XL] 10 mg PO BID 04/10/21 05/08/22 Simvastatin [Zocor] 40 mg PO HS 04/10/21 05/08/22 Tamsulosin HCl [Flomax] 0.4 mg PO DAILY 04/10/21 05/08/22 HYDROcodone/APAP 10-325MG [[place] 1 tab PO TID PRN 07/31/21 05/08/22 10-325] Ondansetron [Zofran] 4 mg PO Q6H PRN 07/31/21 05/08/22 Rivaroxaban [Xarelto] 15 mg PO DAILY 07/31/21 05/08/22 cloNIDine HCL [Catapres] 0.2 mg PO BID 07/31/21 05/08/22 lisinopriL [Zestril] 20 mg PO BID 07/31/21 05/08/22 Cholecalciferol [Vitamin D3 (25 50 mcg PO DAILY 05/08/22 05/08/22 Mcg = 1000 Iu)] Citalopram Hydrobromide [CeleXA] 10 mg PO DAILY 05/08/22 05/08/22 Ferrous Sulfate [Feosol] 325 mg PO DAILY 05/08/22 05/08/22 Folic Acid 0.8 mg PO DAILY 05/08/22 05/08/22 Furosemide [Lasix] 20 mg PO DAILY PRN 05/08/22 05/08/22 Pantoprazole [Protonix] 40 mg PO BID 05/08/22 05/08/22 dilTIAZem HCL [dilTIAZem HCL 24Hr 360 mg PO DAILY 05/08/22 05/08/22 ER ([place])] Previous Rx's Medication Instructions Recorded Acetaminophen Tab [Tylenol] 650 mg PO Q6HR PRN tab 04/15/21 Allergies Allergy/AdvReac Type Severity Reaction Status Date / Time No Known Allergies Allergy Verified 05/08/22 19:18 Review of Systems ROS Statement: Those systems with pertinent positive or pertinent negative responses have been documented in the HPI. ROS Other: All systems not noted in ROS Statement are negative. Constitutional: Denies: fever Eyes: Denies: eye pain ENT: Denies: ear pain Respiratory: Denies: cough Cardiovascular: Denies: chest pain Endocrine: Denies: fatigue Gastrointestinal: Reports: as per HPI, abdominal pain, nausea. Denies: vomiting Genitourinary: Denies: dysuria Musculoskeletal: Denies: back pain Past Medical History Past Medical History: Atrial Fibrillation, Blood Disorder, Coronary Artery Disease (CAD), Cancer, Heart Failure, Deep Vein Thrombosis (DVT), GERD/Reflux, Hyperlipidemia, Hypertension, Musculoskeletal Disorder, Pulmonary Embolus (PE) Additional Past Medical History / Comment(s): clotting disorder MTHFR., PE 11 yrs. ago, back fx. years ago, mostly wheelchair bound but can transfer, esophageal cancer stage 3 dx. 2.5 months ago-having chemo & had radiation tx.'s, not really eating solids but drinking liquids, ensure, able to get pills down History of Any Multi-Drug Resistant Organisms: None Reported Past Surgical History: Back Surgery, Bariatric Surgery Additional Past Surgical History / Comment(s): Stomach stapling Past Anesthesia/Blood Transfusion Reactions: No Reported Reaction Additional Past Anesthesia/Blood Transfusion Reaction / Comment(s): no transfusion problems Past Psychological History: No Psychological Hx Reported Smoking Status: Never smoker Past Alcohol Use History: None Reported Past Drug Use History: None Reported - Past Family History Father Family Medical History: Cancer Additional Family Medical History / Comment(s): Colorectal, Spinal, Pancreaitic, Liver cancer Mother Additional Family Medical History / Comment(s): Ovarian Cancer General Exam Limitations: no limitations General appearance: alert, in no apparent distress Head exam: Present: normocephalic Eye exam: Present: normal appearance ENT exam: Present: normal oropharynx Neck exam: Present: normal inspection Respiratory exam: Present: normal lung sounds bilaterally Cardiovascular Exam: Present: regular rate, normal rhythm GI/Abdominal exam: Present: soft, tenderness (Moderate epigastric tenderness), normal bowel sounds. Absent: distended, guarding, rebound, rigid, pulsatile mas s Extremities exam: Present: pedal edema. Absent: calf tenderness Neurological exam: Present: alert Psychiatric exam: Present: normal affect, normal mood Skin exam: Present: normal color Course Vital Signs 05/08/22 17:13 Temperature 97.2 F L Pulse Rate 66 Respiratory 17 Rate Blood Pressure 136/75 O2 Sat by Pulse 96 Oximetry Medical Decision Making - Medical Decision Making Was pt. sent in by a medical professional or institution ([facility], [facility], urgent care, hospital, or assisted...) When possible be specific @ -No Did you speak to anyone other than the patient for history (EMS, parent, family, police, friend...)? What history was obtained from this source @ -No Did you review nursing and triage notes (agree or disagree)? Why? @ -I reviewed and agree with nursing and triage notes Were old charts reviewed (outside hosp., previous admission, EMS record, old EKG, old radiological studies, urgent care reports/EKG's, assisted records)? Report findings @ -No old charts were reviewed Differential Diagnosis (chest pain, altered mental status, abdominal pain women, abdominal pain men, vaginal bleeding, weakness, fever, dyspnea, syncope, headache, dizziness, GI bleed, back pain, seizure, CVA, palpatations, mental health)? @ -Differential Abdominal Pain Men: Appendicitis, cholecystitis, diverticulosis, ischemic bowel, pancreatitis, hepatitis, UTI, gastroenteritis, AAA, incarcerated hernia, bowel obstruction, constipation, inflammatory bowel, hepatitis, peptic ulcer disease, splenic infarction, perforated viscus, testicular torsion, this is not meant to be an all-inclusive list EKG interpreted by me (3pts min.). @ -As above X-rays interpreted by me (1pt min.). @ -None done CT interpreted by me (1pt min.). @ -Report reviewed U/S interpreted by me (1pt. min.). @ -None done What testing was considered but not performed or refused? (CT, X-rays, U/S, labs)? Why? @ -None What meds were considered but not given or refused? Why? @ -None Did you discuss the management of the patient with other professionals (professionals i.e. , PA, [facility], lab, RT, psych nurse, social work professor, extrusion line operator, teacher, collection officer, therapeutic case manager)? Give summary @ -No Was smoking cessation discussed for >3mins.? @ -No Was critical care preformed (if so, how long)? @ -No Were there social determinants of health that impacted care today? How? (Homelessness, low income, unemployed, alcoholism, drug addiction, transportation, low edu. Level, literacy, decrease access to med. care, long term, rehab)? @ -No Was there de-escalation of care discussed even if they declined (Discuss DNR or withdrawal of care, Hospice)? DNR status @ -No What co-morbidities impacted this encounter? (DM, HTN, Smoking, COPD, CAD, Cancer, CVA, ARF, Chemo, Hep., AIDS, mental health diagnosis, sleep apnea, morbid obesity)? @ -None Was patient admitted / discharged? Hospital course, mention meds given and route, prescriptions, significant lab abnormalities, going to OR and other pertinent info. @ -Patient reevaluated and feeling much better following medications. Patient requesting discharge home. Undiagnosed new problem with uncertain prognosis? @ -No Drug Therapy requiring intensive monitoring for toxicity (Heparin, Nitro, Insulin, Cardizem)? @ -No Were any procedures done? @ -No Diagnosis/symptom? @ -Abdominal pain Acute, or Chronic, or Acute on Chronic? @ -Acute Uncomplicated (without systemic symptoms) or Complicated (systemic symptoms)? @ -default Side effects of treatment? @ -No Exacerbation, Progression, or Severe Exacerbation? @ -No Poses a threat to life or bodily function? How? (Chest pain, [place], [place], pneumonia, PE, COPD, DKA, ARF, appy, cholecystitis, CVA, Diverticulitis, Homicidal, Suicidal, threat to staff... and all critical care pts) @ -No - Lab Data Result diagrams: 05/08/22 17:47 05/08/22 17:47 Lab Results 05/08/22 05/08/22 05/08/22 Range/Units 17:47 17:47 17:47 WBC 8.0 (3.8-10.6) k/uL RBC 4.74 (4.30-5.90) m/uL Hgb 13.2 (13.0-17.5) gm/dL Hct 40.3 (39.0-53.0) % MCV 85.0 (80.0-100.0) fL MCH 27.8 (25.0-35.0) pg MCHC 32.7 (31.0-37.0) g/dL RDW 17.0 H (11.5-15.5) % Plt Count 128 L (150-450) k/uL MPV 7.1 Neutrophils % 87 % Lymphocytes % 5 % Monocytes % 5 % Eosinophils % 1 % Basophils % 0 % Neutrophils # 7.0 (1.3-7.7) k/uL Lymphocytes # 0.4 L (1.0-4.8) k/uL Monocytes # 0.4 (0-1.0) k/uL Eosinophils # 0.1 (0-0.7) k/uL Basophils # 0.0 (0-0.2) k/uL Anisocytosis Slight PT 12.2 H (9.0-12.0) sec INR 1.2 H (<1.2) APTT 27.7 (22.0-30.0) sec Sodium 138 (137-145) mmol/L Potassium 3.5 (3.5-5.1) mmol/L Chloride 101 (98-107) mmol/L Carbon Dioxide 28 (22-30) mmol/L Anion Gap 9 mmol/L BUN 9 (9-20) mg/dL Creatinine 0.62 L (0.66-1.25) mg/dL Est GFR (CKD-EPI)AfAm >90 (>60 ml/min/1.73 sqM) Est GFR (CKD-EPI)NonAf >90 (>60 ml/min/1.73 sqM) Glucose 126 H (74-99) mg/dL Calcium 8.3 L (8.4-10.2) mg/dL Total Bilirubin 0.5 (0.2-1.3) mg/dL AST 21 (17-59) U/L ALT 18 (4-49) U/L Alkaline Phosphatase 110 (38-126) U/L Total Protein 7.2 (6.3-8.2) g/dL Albumin 3.7 (3.5-5.0) g/dL Amylase 31 (30-110) U/L Lipase 36 (23-300) U/L Disposition Clinical Impression: Abdominal pain Disposition: HOME SELF-CARE Condition: Stable Instructions (If sedation given, give patient instructions): Abdominal Pain (ED) Additional Instructions: Please follow-up with your primary care physician, bench manager, and oncologist beginning of the week. Return for not tolerating oral intake, increased pain, worsening symptoms or other concerns. Is patient prescribed a controlled substance at d/c from ED?: No Referrals: Nikolai Yu MD [Primary Care Provider] - 1-2 days Lokesh Vazquez MD [STAFF PHYSICIAN] - 1-2 days Jeanna Morales MD [STAFF PHYSICIAN] - 1-2 days Time of Disposition: 20:40
[2022-05-08 18:11] LABS: Anisocytosis Slight; Basophils % (A) 0 %; Eosinophils # (A) 0.1 k/uL (0-0.7); Eosinophils % (A) 1 %; HCT 40.3 % (39.0-53.0); HGB 13.2 gm/dL (13.0-17.5); Lymphocytes # (A) 0.4 k/uL (1.0-4.8); Lymphocytes % (A) 5 %; MCH 27.8 pg (25.0-35.0); MCHC 32.7 g/dL (31.0-37.0); Mean Platelet Volume 7.1; Monocytes # (A) 0.4 k/uL (0-1.0); Monocytes % (A) 5 %; Neutrophils % (A) 87 %; Platelet Count 128 k/uL (150-450); RBC 4.74 m/uL (4.30-5.90)
[2022-05-08 18:36] LABS: INR 1.2 (<1.2); Partial Thromboplastin Time 27.7 sec (22.0-30.0); Prothrombin Time 12.2 sec (9.0-12.0)
[2022-05-08 18:42] LABS: ALT 18 U/L (4-49); AST 21 U/L (17-59); African American GFR (CKD) >90 (>60 ml/min/1.73 sqM); Albumin 3.7 g/dL (3.5-5.0); Alkaline Phosphatase 110 U/L (38-126); Amylase 31 U/L (30-110); Anion Gap 9 mmol/L; Blood Urea Nitrogen 9 mg/dL (9-20); Calcium 8.3 mg/dL (8.4-10.2); Carbon Dioxide 28 mmol/L (22-30); Chloride 101 mmol/L (98-107); Glucose 126 mg/dL (74-99); Lipase 36 U/L (23-300); Non-African American GFR(CKD) >90 (>60 ml/min/1.73 sqM); Potassium 3.5 mmol/L (3.5-5.1); Sodium 138 mmol/L (137-145); Total Bilirubin 0.5 mg/dL (0.2-1.3); Total Protein 7.2 g/dL (6.3-8.2)
[2022-05-08] MEDS ORDERED: NOREPINEPHRINE 32 MG in SODIUM CHLORIDE 0.9% 218 ML IV SCH (20:15)
--- NOTE | 2022-05-08 20:19 | CT ---
EXAMINATION TYPE: CT abdomen pelvis w con DATE OF EXAM: 05/08/2022 COMPARISON: 03/27/2022 HISTORY: Esophageal cancer CT DLP: mGycm Automated exposure control for dose reduction was used. CONTRAST: Performed , patient injected with mL of . The contrast was Isovue 100 mL. There is oral contrast also. There is some atelectasis at the right posterior lung base. There is mild elevation of the right diap hragm. Heart is borderline enlarged. No pericardial effusion. There is small amount of residual or co ntrast in the lower esophagus. There are surgical clips at the lateral gastric fundus. The spleen is intact. No evidence of pancreatic mass. Gallbladder appears normal. There is a 6 x 3 cm area of hypodensity in the superior right lobe of the liver near the diaphragm. There is interposition of the hepatic flexure of the colon. There is no adrenal mass. Kidneys show satisfactory contrast opacification. No hydronephrosis. Ureter s are not dilated. No retroperitoneal adenopathy. Bladder distention no internal hernia. No free flui d in the pelvis. No pelvic mass. There are multiple sigmoid diverticula. No diverticulitis. The thoracic and lumbar spine are intact. No compression fracture. There is multilevel spondylotic ch anges. The bony pelvis is intact. The hip joints are intact. Sacroiliac joints are intact. IMPRESSION: Hypodensity in the superior right lobe of the liver could relate to metastatic disease. This appears not significantly changed in size compared to the increased signal in this area on the T2-weighted im ages on MR scan of 04/11/2022. Postsurgical changes in the gastric fundus. No bowel obstruction. Mild colonic diverticulosis. Mild s ubsegmental atelectasis right lung base.
[2022-05-08 20:56] VITALS: BP 128/76; PULSE 88; RESP 16; TEMP 98.1
== END 2022-05-08 20:56 | disposition home or self-care (01) ==
LOC: EC 17:11
DX: R10.9 Unspecified abdominal pain (principal); I48.91 Unspecified atrial fibrillation; I25.10 Atherosclerotic heart disease of native coronary artery without angina pectoris; I11.0 Hypertensive heart disease with heart failure; I50.9 Heart failure, unspecified; E78.5 Hyperlipidemia, unspecified; K21.9 Gastro-esophageal reflux disease without esophagitis; Z86.711 Personal history of pulmonary embolism; Z79.899 Other long term (current) drug therapy; Z79.01 Long term (current) use of anticoagulants; Z85.01 Personal history of malignant neoplasm of esophagus
CPT/HCPCS: 99285 ×2; 96374 ×2; 96375 ×3; 96361 ×2; 36415; 80053; 82150; 83690; 85025; 85610; 85730; 74177; J2405; J1170; Q9967

== ENCOUNTER → 2022-07-03 | Outpatient (CLI) | payer MEDICARE, BC ==
--- NOTE | 2022-07-03 14:49 | PE ---
EXAMINATION TYPE: PET CT fusion skull to thigh DATE OF EXAM: 07/03/2022 COMPARISON: Most recent PET CT March 27, 2022 and older studies HISTORY: Gastric cancer diagnosed April 2021 progress study currently undergoing chemotherapy. TECHNIQUE: Following the intravenous administration of 9.7 mCi of F-18 FDG, whole body images are pe rformed from the skull base to the midthigh. Images are reviewed on the computer in the coronal, axi al, and sagittal planes. Reconstructed rotating images are created on independent workstation and re viewed on the computer. A localization and attenuation correction CT is performed in conjunction wi th the PET scan. Blood glucose level equals 91 SCAN: Subsequent Scan FINDINGS: FINDINGS: Suboptimal study due to large body habitus. SKULL BASE AND NECK: No new abnormal hypermetabolic uptake on current study. CHEST, MEDIASTINUM, AND HILAR REGION: No new areas of abnormal hypermetabolic uptake. Elevated right hemidiaphragm redemonstrated. ABDOMEN AND PELVIS: Multiple surgical clips along the posterior margins of the stomach causing streak artifact redemonstrated. No definitive abnormal hypermetabolic uptake at this level. Mild to moderat e wall thickening distal esophagus up to level of diaphragmatic hiatus remains ametabolic currently. No abnormal hypermetabolic uptake in the hepatic dome on current study. No definitive areas of abnorm al hypermetabolic uptake throughout remainder of the abdomen or pelvis. Renal excretion is redemonstr ated. OSSEOUS STRUCTURES: No new areas of abnormal hypermetabolic uptake. OTHER CT: Spine is straightened with moderate multilevel disc space narrowing and spurring. There is stable right internal jugular Mediport catheter . There is cardiomegaly with severe three-vessel katy nary artery calcification redemonstrated. Cortical thinning in both kidneys. Few Distal colonic diverticula redemonstrated. Prostate gland la ins upper limits of normal in size. IMPRESSION: Suboptimal study due to large body habitus. No new or residual areas of abnormal hypermet abolic uptake to suggest persistent active malignancy or new metastatic malignancy.
== END | disposition home or self-care (01) ==
LOC: RADPETMAIN 12:03
PROVIDERS: ATTEND Internal Medicine Hematology & Oncology
DX: C16.0 Malignant neoplasm of cardia (principal)
CPT/HCPCS: 78815; A9552; J1642

== ENCOUNTER 2022-10-13 09:39 | Day surgery (SDC) | payer MEDICARE, BC ==
[2022-10-13 10:04] VITALS: TEMP 97.6
[2022-10-13] MEDS ORDERED: LACTATED RINGERS 1,000 ML IV ONE (10:09)
[2022-10-13] MEDS ORDERED: LACTATED RINGERS 1,000 ML IV SCH (10:17)
[2022-10-13] MEDS ORDERED: LIDOCAINE 1% (10MG/ML) FOR IV START INTRADERMA PRN (10:17)
[2022-10-13] MEDS ORDERED: PROPOFOL 10 MG/ML 20 ML VIAL IV ONE (10:49)
[2022-10-13] MEDS ORDERED: LIDOCAINE 2% INJ 20 MG/ML (2 ML VIAL) ONE (10:49)
--- NOTE | 2022-10-13 11:08 | P.PCN ---
Date of Procedure: 10/13/22 Procedure(s) Performed: BRIEF HISTORY: Patient is a 66-year-old, pleasant, white male scheduled for an upper endoscopy as a part of evaluation of progressive dysphagia to solids for the last 4 months duration. 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 About 4 months ago he was diagnosed with metastatic cancer with liver involvement. He was started and no chemotherapy. Lately has been having progressive dysphagia to solids for the last 9 days has been able to swallow some liquids. Losing weight. Hence scheduled for an upper endoscopy with possible dilation. PROCEDURE PERFORMED: Esophagogastroduodenoscopy with balloon dilation. PREOPERATIVE DIAGNOSIS: History of GE junction adenocarcinoma diagnosed in March 2021 status post radiation and chemotherapy/progressive dysphagia to solids. IV sedation per anesthesia. PROCEDURE: After informed consent was obtained, the patient was brought into the endoscopy unit. IV sedation was administered by Anesthesia under continuous monitoring. Initially the Olympus GIF-140 video endoscope was inserted into the mouth. Esophagus intubated without any difficulty. It was gradually advanced into the distal esophagus and there was a tight radiation-induced stricture identified. Scope could not be advanced to the stricture. At this time I proceeded with balloon dilation using 10-12 mm TTS balloon in a sequential fashion for 30 seconds. Following this I was advanced as scope into the stomach and duodenum and carefully examined. The bulb and the second part of the duodenum appeared normal. The scope at this time was withdrawn to the stomach, adequately insufflated with air, and upon careful examination, mucosa of the antrum, body, cardia and the fundus appeared normal. Moderate size hiatal hernia noted. The scope was then withdrawn into the esophagus. The GE junction was located at 42 cm from the incisors. At this point I proceeded with repeat dilation using 12 and 13.5 mm TTS balloon for another 20 seconds. There was some exudates noted in the distal esophagus from radiation-induced esophageal stricture. The rest of the esophagus appeared normal. The patient tolerated the procedure well. IMPRESSION: 1. Radiation-induced distal esophageal stricture at 40 cm from the incisors status post balloon dilation using 11/26/2011 and 13.5 mm TTS balloon as described above. 2. No evidence of recurrent tumor in the esophagus or cardia of the stomach 3. Moderate size hiatal hernia. RECOMMENDATIONS: The findings of this examination were discussed with the patient as well as his family. He was advised to remain on a clear liquid diet for today. Advance as tolerated. Follow up in office as needed..
[2022-10-13 11:47] VITALS: BP 98/69; PULSE 59; RESP 20
== END 2022-10-13 11:59 | disposition home or self-care (01) ==
LOC: ORWHC2ENDO 09:39
PROVIDERS: ATTEND Internal Medicine Gastroenterology
DX: K22.2 Esophageal obstruction (principal); K44.9 Diaphragmatic hernia without obstruction or gangrene; K21.9 Gastro-esophageal reflux disease without esophagitis; E78.5 Hyperlipidemia, unspecified; I11.0 Hypertensive heart disease with heart failure; I48.91 Unspecified atrial fibrillation; I50.9 Heart failure, unspecified; Z85.028 Personal history of other malignant neoplasm of stomach; Z79.899 Other long term (current) drug therapy; Z79.01 Long term (current) use of anticoagulants
CPT/HCPCS: 43249; J2704; J2001; C1726 ×2

== ENCOUNTER → 2023-02-18 | Outpatient (CLI) | payer MEDICARE, BC ==
--- NOTE | 2023-02-21 20:33 | PE ---
EXAMINATION TYPE: PET CT fusion skull to thigh DATE OF EXAM: 02/18/2023 CLINICAL INDICATION:Male, 67 years old with history of C16.0 STOMACH CANCER; TECHNIQUE: Following the intravenous administration of 10.67 mCi of F-18 FDG, whole body images are performed from the skull base to the midthigh. Images are reviewed on the computer in the coronal, axial, and sagittal planes. Reconstructed rotating images are created on independent workstation and reviewed on the computer. A non-contrast CT is performed in conjunction with the PET scan. Glucose level 74 mg/dL CT DLP: 1058 mGycm, Automated exposure control for dose reduction was used. COMPARISON: CT 05/08/2022, PET/CT 09/04/2022, FINDINGS: FINDINGS: Mediastinal SUV mean is 2.1. Hepatic parenchyma SUV mean is 3.1. SKULL BASE AND NECK: No suspicious radiotracer activity. CHEST, MEDIASTINUM, AND HILAR REGION: New abnormal FDG activity within the thorax. Examples include: * Right upper lung pulmonary nodule measuring 8 mm Max SUV 6.7 * Right middle lobe pulmonary nodule measuring 8 mm Max SUV 3.6 * Left lower lobe pulmonary nodule measuring 11 mm Max SUV 4.4. ABDOMEN AND PELVIS: * There is increase in FDG activity scattered throughout the abdominal liver now large conglomerate mass max SUV 23.5. Is poorly visualized on CT imaging without IV contrast measures up to 14.7 x 13.1 cm. There are least 15 other lesions in the liver which are smaller. * Wale hepatis lymph nodes max SUV 8.53 no FDG activity measuring up to 15 mm in short axis. MUSCULOSKELETAL STRUCTURES: New abnormal FDG activity within osseous structures. Examples include: * Left posterior acetabulum max SUV 20.6. * Right superior pubic ramus max SUV 14.9. * Right proximal femur max SUV 20.4. * Sacrum max SUV 12.3. * T9 T8 posterior elements max SUV 13.9 * Left rib 4. Max SUV 4.7. * Left rib 5. Max SUV 9.2. OTHER CT: Right chest wall [id number] with distal tip in appropriate positions. Vena cava. Atheros clerosis of the arterial vasculature including the coronary arteries. The heart is mildly enlarged fo r size. There is left colonic diverticula. Prostate gland is enlarged measuring up to 5.8 cm in trans verse dimension. Fat-containing inguinal hernias bilaterally left greater than right. Surgical clips in the left upper quadrant. IMPRESSION: Progression of disease with increasing liver metastatic foci size and activity as well as new osseous metastatic disease, new pulmonary nodules and abdominal lymphadenopathy compatible with metastatic d isease.
== END | disposition home or self-care (01) ==
LOC: RADPETMAIN 13:26
PROVIDERS: ATTEND Internal Medicine Hematology & Oncology
DX: C78.7 Secondary malignant neoplasm of liver and intrahepatic bile duct (principal); C79.51 Secondary malignant neoplasm of bone; C16.0 Malignant neoplasm of cardia; R91.8 Other nonspecific abnormal finding of lung field
CPT/HCPCS: 78815; A9552